=== PATIENT | male | born 1955 | race Caucasian/White ===

== ENCOUNTER 2020-03-20 12:46 | Observation (INO) | payer OTHER ==
--- OUTSIDE RECORDS SUMMARY | 2020-03-20 12:48 | XMS REPORT | Clinical Summary ---
:1955 Author Organization [facility] Address [address] [place] [address] Care Team Providers Name Role Phone AdamsonSteve yancey Primary Care Provider Allergies No Known Allergies Medications Medication Sig Dispensed Refills Start End Date Status Date lisinopril Take 40 mg 0 Active (PRINIVIL,ZESTRIL) 40 MG by mouth tablet daily. hydroCHLOROthiazide Take 25 mg 0 Active (HYDRODIURIL) 25 MG by mouth tablet daily. atorvastatin (LIPITOR) Take 10 mg 0 Active 10 MG tablet by mouth daily. tamsulosin (FLOMAX) 0.4 Take 0.4 mg 0 Active mg Cap 24 hr capsule by mouth daily. finasteride (PROSCAR) 5 Take 5 mg by 0 Active mg tablet mouth daily. aspirin 81 MG EC tablet Take 81 mg 0 Active by mouth daily. docusate sodium (COLACE) Take 1 10 capsule 0 10/19 100 MG capsule capsule (100 0 20 mg total) by mouth 2 (two) times daily for 10 days. acetaminophen-codeine Take 1 15 tablet 0 08/25/19 Discontinued (TYLENOL-CODEINE #3) tablet by 0 20 300-30 mg per tablet mouth every 4 (four) hours as needed for Pain for up to 10 days. Max Daily Amount: 6 tablets ciprofloxacin HCl Take 1 6 tablet 0 08/28/19 Ex pired (CIPRO) 500 MG tablet tablet (500 0 20 mg total) by mouth 2 (two) times daily for 3 days Start taking day before your Urology clinic appointment. traMADol (ULTRAM) 50 mg Take 2 20 tablet 0 tablet tablets (100 0 20 mg total) by mouth every 6 (six) hours as needed for Pain for up to 10 days. Max Daily Amount: 400 mg Active Problems Problem Noted Date Prostate cancer 08/24/2019 Encounters Date Type Specialty Care Team Description 08/24/2019 Anesthesia Event Eduardo Reina MD 08/24/2019 Surgery Carlitos Pugh, ROBOTIC MD LAPAROSCOPY,PRO STATE CTOMY W/ PELVIC LYMPH NODE DISSECTION 08/24/2019 - Hospital Encounter General Internal Carlitos Pugh, 08/26/2019 Medicine 08/03/2019 Hospital Encounter Pre-Admission Carlitos Pugh, Testing MD after 03/20/2019 Social History Tobacco Use Types Packs/Day Years Used Date Former Smoker 1.5 25 Quit: 08/02/19 10 Smokeless Tobacco: Current User Chew Tobacco Cessation: Ready to Quit: No Alcohol Use Drinks/Week oz/Week Comments No Alcohol Habits Answer Date Recorded How often do you have a drink containing alcohol? Never 08/03/2019 How many drinks containing alcohol do you have on a typical Not asked day when you are drinking? How often do you have six or more drinks on one occasion? No t asked Sex Assigned at Date Recorded Not on file Job Start Date Occupation Industry Not on file Not on file Not on file Travel History Travel Start Travel End No recent travel history available. Last Filed Vital Signs Vital Sign Reading Time Taken Blood Pressure 144/68 08/26/2019 11:00 AM UTILIZATION SUPERVISOR Pulse 52 08/26/2019 11:00 AM UTILIZATION SUPERVISOR Temperature 36 C (96.8 F) 08/26/2019 11:00 AM UTILIZATION SUPERVISOR Respiratory Rate 18 08/26/2019 11:00 AM UTILIZATION SUPERVISOR Oxygen Saturation 98% 08/26/2019 11:00 AM UTILIZATION SUPERVISOR Inhaled Oxygen Concentration - - Weight 103.9 kg (229 lb 0.9 oz) 08/24/2019 6:0 0 AM UTILIZATION SUPERVISOR Height 182.9 cm (6') 08/24/2019 6:00 AM UTILIZATION SUPERVISOR Body Mass Index 31.07 08/24/2019 6:00 AM UTILIZATION SUPERVISOR Plan of Treatment Not on file Procedures Procedure Name Priority Date/Time Associated Comments Diagnosis RHYTHM STRIP - SCAN 08/28/2019 10:30 AM UTILIZATION SUPERVISOR HEMOGLOBIN AND Routine 08/26/2019 4:42 Results f or this HEMATOCRIT AM UTILIZATION SUPERVISOR procedure are i n the results section. BASIC METABOLIC Routine 08/26/2019 4:42 Results for this PANEL (7) AM UTILIZATION SUPERVISOR procedure are i n the results section. TRANSFUSION SERVICE 08/25/2019 9:03 REPORT - SCAN PM UTILIZATION SUPERVISOR HEMOGLOBIN AND Routine 08/25/2019 4:58 Results f or this HEMATOCRIT AM UTILIZATION SUPERVISOR procedure are i n the results section. BASIC METABOLIC Routine 08/25/2019 4:58 Results for this PANEL (7) AM UTILIZATION SUPERVISOR procedure are i n the results section. BASIC METABOLIC STAT 08/24/2019 3:58 Results for this PANEL (7) PM UTILIZATION SUPERVISOR procedure are i n the results section. HEMOGLOBIN AND Routine 08/24/2019 3:58 Results f or this HEMATOCRIT PM UTILIZATION SUPERVISOR procedure are i n the results section. TISSUE EXAM AP Routine 08/24/2019 11:00 Results for this AM UTILIZATION SUPERVISOR procedure are i n the results section. PROCEDURE W/ DAVINCI 08/24/2019 8:00 Prostate cancer AM UTILIZATION SUPERVISOR (HCC) Case Notes 4 HRS Special Needs (DAVINIC SI) ROBOTIC LAPAROSCOPY,PROSTATECTOMY W/ 08/24/2019 8:00 AM UTILIZATION SUPERVISOR Prostate cancer PELVIC LYMPH NODE DISSECTION (HCC) Case Notes 4 HRS Special Needs (DAVINIC SI) URINALYSIS W/ REFLEX URINE STAT 08/24/2019 7:39 AM UTILIZATION SUPERVISOR Results for this CULTURE procedure are i n the results section . CBC W/PLT COUNT & AUTO STAT 08/24/2019 7:18 AM UTILIZATION SUPERVISOR Results for this DIFFERENTIAL procedure are i n the results section . ABORH, MANUAL Routine 08/24/2019 7:18 AM UTILIZATION SUPERVISOR Res ults for this procedure are i n the results section . CBC W/PLT COUNT & AUTO STAT 08/24/2019 7:18 AM UTILIZATION SUPERVISOR Results for this DIFFERENTIAL procedure are i n the results section . TRANSFUSION SERVICE REPORT 08/04/2019 6:04 PM UTILIZATION SUPERVISOR - SCAN TYPE AND SCREEN, AUTOMATED Routine 08/03/2019 3:11 PM UTILIZATION SUPERVISOR Results for this procedure are i n the results section . HEMOGLOBIN Routine 08/03/2019 3:11 PM UTILIZATION SUPERVISOR Resu lts for this procedure are i n the results section . PLATELET COUNT Routine 08/03/2019 3:11 PM UTILIZATION SUPERVISOR Re sults for this procedure are i n the results section . BUN AND CREATININE W/RATIO Routine 08/03/2019 3:11 PM UTILIZATION SUPERVISOR Results for this procedure are i n the results section . ELECTROLYTE PANEL Routine 08/03/2019 3:11 PM UTILIZATION SUPERVISOR Results for this procedure are i n the results section . after 03/20/2019 Results RHYTHM STRIP - SCAN (08/28/2019 10:30 AM UTILIZATION SUPERVISOR) Narrative Performed At This result has an attachment that is no t available. Hemoglobin and hematocrit (08/26/2019 4:42 AM UTILIZATION SUPERVISOR)Only the most recent of3 resultswithin the time period is included. Hemoglobin 11.2 (L) 13.7 - 17.5 GM/DL [facility] Hematocrit 32.5 (L) 40.1 - 51.0 % [facility] Specimen Blood Narrative Performed At Third Rigger ID - [id number] [facility] Performing Organization Address City/State/Zipcode Phone Number [facility] [address] [place] [address] CENTER Basic metabolic panel (08/26/2019 4:42 AM UTILIZATION SUPERVISOR)Only the most recent of3 results within the time period is included. Sodium 136 136 - 145 meq/L [facility] Potassium 3.4 (L)Comment: Specimen 3.5 - 5.1 meq/L [facility] slightly hemolyzed [facility] Chloride 105 98 - 107 meq/L [facility] CO2 26 22 - 29 meq/L [facility] BUN 10 7 - 21 mg/dL [facility] Creatinine 0.87Comment: Specimen 0.57 - 1.25 mg/dL [facility] slightly hemolyzed [facility] Glucose 89 70 - 105 mg/dL [facility] Calcium 8.0 (L) 8.4 - 10.2 mg/dL [facility] EGFR 89Comment: ESTIMATED GFR IS mL/min/1.73 sq m [facility] NOT ACCURATE CREATININE [facility] CLEARANCE IN PREDICTING GLOMERULAR FILTRATION RATE. ESTIMATED GFR IS NOT APPLICABLE FOR DIALYSIS PATIENTS. Specimen Blood Narrative Performed At Third Rigger ID - DANGELO Jabari [facility] Performing Organization Address City/State/Zipcode Phone Number [facility] [address] [place], [place] [id number] CENTER TRANSFUSION SERVICE REPORT - SCAN (08/25/2019 9:03 PM UTILIZATION SUPERVISOR)Only the most recent of2 resultswithin the time period is included. Narrative Performed At This result has an attachment that is no t available. Tissue Exam (08/24/2019 11:00 AM UTILIZATION SUPERVISOR) Case Report Surgical Pathology Report Case: [id number] [facility] Authorizing Provider:Carlitos Borja MDCollected: 08/24/2019 1100 [facility] Ordering Location: [facility] Received:08/24/2019 1620 SERVICES Pathologist: Zack Downey MD Specimens: A) - Lymph No de, Crystal-prostatic Lymph Nodes B) - Lymph Node, Left Pelvic Lymph Nodes C) - Lymph Node, Right Pelvic Lymph Nodes D) - Prostate, prostate and seminal vessicles DIAGNOSIS A. LYMPH NODE, PERIPROSTATIC, BIOPSY: [facility] - METASTATIC ADENOCARCINOMA IN ONE OF ONE LY MPH NODE (08/02) [facility] B. LYMPH NODES, LEFT PELVIC, DISSECTION: - METASTATIC ADENOCARCINOMA IN ONE OF TWELVE LYMPH NODES (08/13) C. LYMPH NODES, RIGHT PELVIC, DISSECTION: - SEVEN BENIGN LYMPH NODES (0/7) D. PROSTATE, ROBOTIC ASSISTED LAPAROSCOPIC RADIC AL PROSTATECTOMY: - ADENOCARCINOMA, DANIELLA 5+4=9, ESTABLISHED EXTRAPROSTATIC EXTENSION, SURGICAL MARGINS POSITIVE SEMINAL VESICLES, ROBOTIC ASSISTED LAPAROSCO PIC RADICAL PROSTATECTOMY: - INVOLVEMENT BY ADENOCARCINOMA OF PROST ATE (BILATERAL) Signing Pathologist Direct Phone Line: [phone] COMMENT Sections show a dominant rig ht peripheral zone cancer that runs from the apex to the base of the prostate. The tumor also spreads by direct extension to involve most of the left peripheral zone. The [facility] umor shows a positive surgic al margin in the right apical shave and in the region of the right neurovascular bundle in the apical third of the gland, the latter associated with extraprostatic extension [facility] at the positive margin. The re is extensive involvement of both seminal vesicles and the adjacent soft tissue. There is intraductal carcinoma and large volume perineural space invasion, both of which a re adverse prognostic indica tors. A focus of lymph vascular invasion is seen adjacent to the right seminal vesicle. SYNOPTIC REPORT PROSTATE GLAND: Radical Pros tatectomy(Prostate - All Specimens) [facility] 8th Edition - Protocol posted: 09/28/2018 : SPECIMEN Procedure:Radical prostatectomy Prostate Size: Prostate Weight (g):85 g Prostate Greatest Dimension (Centimeter s):5.3 cm Additional Dimension (Centimeters): 4.5 cm Additional Dimension (Centimeters): 3.9 cm TUMOR Histologic Type:Acinar adenocarcino ma Histologic Grade: Grade Group and Gle ason Score:Grade group 5 (Daniella Score 5 + 4 = 9) : Percentage of Pattern 4:30 % Percentage of Pattern 5:60 % Intraductal Carcinoma (IDC):Present Tumor Quantitation:25 % Extraprostatic Extension (EPE):Present, nonfocal Location of Extraprostatic Extension: Right lateral Location of Extraprosta tic Extension:Right posterolateral (neurovascular bundle) Location of Extraprosta tic Extension:soft tissue adjacent ot seminal vesicles Urinary Bladder Neck Invasion:Not ident ified Seminal Vesicle Invasion:Present :Bilateral Treatment Effect:No known presurgical t herapy Lymphovascular Invasion:Present Perineural Invasion:Present: large volu me MARGINS Margins:Involved by invasive carcinoma :Non-limited (>= 3 mm) Linear Length of Positive Margin(s) (Millim eters):10 mm Focality:Unifocal Location of Positive Margin(s):Righ t apical Location of Positive Ma rgin(s):Right postero-lateral (neurovascular bundle) Margin Positivity in Ar ea of Extraprostatic Extension (EPE):Present Location(s):riht neurovascular bundle Daniella Pattern at Positive Margin(s): Pattern 5 LYMPH NODES Number of Lymph Nodes Involved:2 Site(s):Pelvic NOS: Left Site(s):Periprostatic Size of Largest Lymph Node Involved (Centimeter s):0.4 cm Extranodal Extension:Present Number of Lymph Nodes Examined:20 PATHOLOGIC STAGE CLASSIFICATION (pTNM, AJCC 8th Edition) Primary Tumor (pT):pT3b Regional Lymph Nodes (pN):pN1 ADDITIONAL FINDINGS Additional Findings: High-grade prostatic intraepithelial neoplasia (PIN) Additional Findings:Inflammation (type) : chronic Additional Findings:Nodular prostatic h yperplasia CPT Code(s) A. 85000 [facility] HE ALTH B. [address] [facility] C. 83366 D. 69156 CLINICAL HISTORY Prostate cancer [facility] SPECIMEN SOURCE A. Periprostatic lymph [facility] nodes. B. Left pelvic lymph [facility] nodes. C. Right pelvic lymph nodes. D. Prostate and seminal vesicles GROSS DESCRIPTION The case is received fresh i n four parts, each labeled with the patient's name and accession number. [facility] Part A. Labeled "periprostat ic lymph nodes" is a 0.4 x 0.4 x 0.2 cm pink lymph node with attached soft tissue. The lymph node is submitted in A1, and the remainder of the specimen is in A2-A3. Part B. Labeled "left pelvic lymph nodes" is a 4 x 3 x 1.3 cm aggregate of two irregular portions of yellow adipose tissue. The specimen is serially sectioned to reveal multiple pink mostly fat-replaced lymph nodes ranging 0.4-2 cm. The specimen is e ntirely submitted. Section code: B1-B3, one lymph node bisected in each cassette B4, one possible intact lymph node B5, two possible intact lymph nodes B6, one possible intact lymph node B7, remainder of specimen Part C. Labeled "right pelvi c lymph nodes" is a 4 x 3 x 1 cm irregular portion of zelaya-yellow adipose tissue. The specimen is serially sectioned to reveal three possible pink partially fat-replaced lymph nodes ranging 0.4-4.7 cm. The specimen is entir eva submitted. Section code: C1, one lymph node bisected C2, one intact lymph node C3-C6, largest lymph node, serially sectioned C7-C8, remainder of specimen Part D. Labeled "prostate" i s an 85 gm radical prostatectomy (weight devoid of adnexa) with attached bilateral seminal vesicles and vas deferentia. The prostate measures 4.5 cm apex to base, 5.3 cm transversely and 3.9 cm anterior to posterior. The right and left seminal vesicles measure 2.7 x 1.5 x 0.8 cm and 2.9 x 1.1 x 0.6 cm respectively. The r ight and left vas deferens m easure 4.3 cm and 3 cm in length respectively, each 0.5 cm in diameter. The capsular surface of the prostate is purple-zelaya to red, dusky and focally ragged. Ink code: Blue-left Black-right The prostate is serially sec tioned from apex to base in its entirety. The total number of slices is 8. Sections reveals pink-zelaya to stevenson-white, homogeneous, focally nodular prostatic parenchyma throughout. The median lobe slightly bulges through the bladder base. No discrete masses are identified. Sectio jaja of the seminal vesicles reveals a zelaya-pink, unremarkable cut surface. Section code: D1, right vas deferens margin, en face, and righ t seminal vesicle, bisected D2, left vas deferens margin, en face, and left seminal vesicle D3, apex margin, perpendicular sections D4, bladder base margin, perpendicular sections D5-D15, prostate in its entirety submitted seque ntially from apex to base CG/ew MICROSCOPIC DESCRIPTION A-D. Performed. [facility] Gross assessment was [facility] C [facility] performed at [place], Department of [facility] Pathology, [address] [place] [id number], Professional component [facility] was performed at [place], Department of [facility] Pathology, [address] [place] [id number], Specimen Tissue Tissue - Structure of lymph node (body s tructure) Tissue - Structure of lymph node (body s tructure) Tissue - Prostatic structure (body struc ture) Performing Organization Address City/State/Zipcode Phone Number [address] [address] [place] Urinalysis w/Microscopic + Reflex to Culture (08/24/2019 7:39 AM UTILIZATION SUPERVISOR) Color, UA Yellow [facility] Clarity, UA Clear [facility] Specific [place], UA 1.011 1.001 - 1.035 [facility] pH, UA 8.5 (H) 5.0 - 8.0 [facility] Protein, UA Negative Negative [facility] Glucose, UA Negative Negative [facility] Ketones, UA Negative Negative [facility] Bilirubin, UA Negative Negative [facility] Blood, UA Negative Negative [facility] Nitrite, UA Negative Negative [facility] Leukocytes, UA Negative Negative [facility] Urobilinogen, UA 0.2 0.2 - 1.0 mg/dL [facility] RBC, UA 0 /HPF [facility] WBC, UA 1 /HPF [facility] Squam Epithel, UA 1 /HPF [facility] Specimen Source [facility] Specimen Urine Narrative Performed At Third Rigger ID - [auto] [facility] Third Rigger ID - tech Performing Organization Address City/[facility]/Zipcode Phone Number [address] [address] CENTER toshia KNIGHT (08/24/2019 7:18 AM UTILIZATION SUPERVISOR) ABO Grouping B [facility] Rh Factor NEG [facility] Specimen Blood Performing Organization Address City/[facility]/Zipcode Phone Number [address] [address] CBC with platelet count + automated diff (08/24/2019 7:18 AM UTILIZATION SUPERVISOR) WBC 6.8 3.5 - 10.5 K/L [facility] RBC 4.02 (L) 4.63 - 6.08 M/L [facility] Hemoglobin 13.3 (L) 13.7 - 17.5 GM/DL [facility] Hematocrit 38.0 (L) 40.1 - 51.0 % [facility] MCV 94.5 (H) 79.0 - 92.2 fL [facility] MCH 33.1 (H) 25.7 - 32.2 pg [facility] MCHC 35.0 32.3 - 36.5 GM/DL [facility] RDW 13.1 11.6 - 14.4 % [facility] Platelets 190 150 - 450 K/CU MM [facility] MPV 11.0 9.4 - 12.4 fL [facility] nRBC 0 0 - 0 /100 WBC [facility] % Neutros 71 % [facility] % Lymphs 21 % [facility] % Monos 6 % [facility] % Eos 1 % [facility] % Baso 0 % [facility] # Neutros 4.78 1.78 - 5.38 K/L [facility] # Lymphs 1.43 1.32 - 3.57 K/L [facility] # Monos 0.43 0.30 - 0.82 K/L [facility] # Eos 0.07 0.04 - 0.54 K/L [facility] # Baso 0.03 0.01 - 0.08 K/L [facility] Immature Granulocytes-Relative 0 0 - 1 % C HI [facility] Specimen Blood Performing Organization Address City/State/Zipcode Phone Number [facility] [address] [place] [address] CENTER Type and screen, automated (08/03/2019 3:11 PM UTILIZATION SUPERVISOR) ABO/RH AUTOMATED (BEAKER) B NEGATIVE [facility] Ab Scrn NEGATIVE [facility] Specimen Blood Performing Organization Address City/[facility] Phone Number [address] [address] BUN and Creatinine (08/03/2019 3:11 PM UTILIZATION SUPERVISOR) BUN 11 7 - 21 mg/dL [facility] Creatinine 1.05 0.57 - 1.25 mg/dL [facility] EGFR 72Comment: ESTIMATED GFR IS mL/min/1.73 sq m [facility] NOT ACCURATE CREATININE [facility] CLEARANCE IN PREDICTING GLOMERULAR FILTRATION RATE. ESTIMATED GFR IS NOT APPLICABLE FOR DIALYSIS PATIENTS. Specimen Blood Performing Organization Address [facility] Phone Number [address] [address] CENTER Platelet count (08/03/2019 3:11 PM UTILIZATION SUPERVISOR) Platelets 225 150 - 450 K/CU MM [facility] Specimen Blood Performing Organization Address [facility] Phone Number [address] [address] CENTER Hemoglobin (08/03/2019 3:11 PM UTILIZATION SUPERVISOR) Hemoglobin 13.8 13.7 - 17.5 GM/DL [facility] Specimen Blood Performing Organization Address City/[facility] Phone Number [address] [address] CENTER Electrolytes (08/03/2019 3:11 PM UTILIZATION SUPERVISOR) Sodium 139 136 - 145 meq/L [facility] Potassium 3.6 3.5 - 5.1 meq/L [facility] Chloride 102 98 - 107 meq/L [facility] CO2 26 22 - 29 meq/L [facility] Specimen Blood Performing Organization Address City/State/Zipcode Phone Number [facility] [address] [place] [address] CENTER after 03/20/2019 Insurance Payer Benefit Plan / Group Subscriber ID Type Phone A [facility] CHOICE xxxxxxxxxxxx HMO/POS [phone] CHOICE EXCHANGE Advance Directives For more information, please contact:[facility] [place] [address] [phone] Code Status Date Activated Date Inactivated Comments Full Code 08/24/2019 6:30 PM 08/26/2019 6:22 PM This code status was determined by: Patient
--- OUTSIDE RECORDS SUMMARY | 2020-03-20 12:49 | XMS REPORT ---
:1955 Author Organization [employer] Care Team Providers Name Role Phone Juan Diego Suhas Provider Role Unavailable Allergies, Adverse Reactions, Alerts Substance Reaction Event Type N.K.D.A. Info Not Available Non Drug Allergy Problems Problem Type Condition Code Onset Dates Condition Statu s Problem Eczema, unspecified type L30.9 Act zacarias Problem Elevated prostate specific antigen R97.20 Active (PSA) Problem Former smoker Z87.891 Active Problem Prostate cancer C61 Active Problem History of malignant neoplasm of Z85.46 Active prostate Problem Acute right-sided low back pain M54.41 Active with right-sided sciatica Problem Benign prostatic hyperplasia with N40.1 Active lower urinary tract symptoms Problem BPH without urinary obstruction N40.0 Active Problem Adult BMI 31.0-31.9 kg/sq m Z68.31 Active Problem BPH loc w urin obs/LUTS N40.1 Acti ve Problem History of skin cancer Z85.828 Activ e Assessment Muscle spasm M62.838 Active Problem Benign essential hypertension I10 Active Assessment Acute right-sided low back pain M54.41 Active with right-sided sciatica Problem Mixed hyperlipidemia E78.2 Active Medications Medication Code Code Instructions Start End Status Dosage System Date Date Aspirin Adult Low Dose [facility] 44734836249 81 MG Orally Active 1 tablet Once a day Lisinopril [facility] 39376606988 40 MG Orally Active 1 ta blet Once a day Lipitor ND 37143085934 10 MG Orally Active 1 table t Once a day Lisinopril ND 77563095247 40 MG Orally Active 1 ta blet Once a day Hydrochlorothiazide ND 44061274684 25 MG Orally Act zacarias 1 tablet Once a day in the morning Cyclobenzaprine HCl ND 46653136918 10 MG Orally December 26December Act zacarias 1 tablet Once a day 2019, at 2019 bedtime as needed Results No Known Results Summary Purpose eClinicalWorks Submission
--- OUTSIDE RECORDS SUMMARY | 2020-03-20 12:49 | XMS REPORT | Continuity of Care Document ---
:1955 Author Organization [facility] t Address [address] [place] [address] [place] [id number] Care Team Providers Name Role Phone Steve Adamson DO Primary Care Physician Leidy Roberts Attending Clinician Unavailable Leidy Roberts Attending Clinician Unavailable Lexy HUANG Attending Clinician LEXY Attending Clinician Unavailable Lexy HUANG Attending Clinician Nuno HUANG Attending Clinician LEXY Admitting Clinician Unavailable Payers Payer Name Policy Type Policy Number Effective Date Expiration Date [facility] xxxxxxxxxxxx [facility] Luke s - CHOICE Medical EXCHANGExxxxxxxxxxxx Cent er [id number]/[phone] Problems Condition Condition Condition Status Onset Resolution Last Treating Co mments Source Name Details Category Date Date Treatment Clinician Date Prostate Prostate Disease [facility] - [facility]: Medical [address] [place] [address] Benign Benign Diagnosis Active [facility] essential essential Luke s - hypertensi hypertensi Me moria on on l Outpati ent Clinics Elevated Elevated Problem Active [facility] prostate prostate [facility] - specific specific Memori a antigen antigen l (PSA) (PSA) Outpati ent Clinics BPH BPH Problem Active [facility] without without [facility] - urinary urinary Memoria obstructio obstructio l n n Outpati ent Clinics Eczema, Eczema, Diagnosis Active [facility] unspecifie unspecifie Lucille kes - d type d type Memoria l Outpati ent Clinics Mixed Mixed Problem Active [facility] hyperlipid hyperlipid Lucille kes - emia emia [facility] Former Former Problem Active [facility] smoker smoker [facility] History of History of Problem Active [facility] skin skin [facility] - cancer cancer [facility] BPH loc w BPH loc w Problem Active [facility] urin urin [facility] - obs/LUTS obs/LUTS Memori a l [facility] Adult BMI Adult BMI Diagnosis Active [facility] 31.0-31.9 31.0-31.9 Luke s - kg/sq m kg/sq m [facility] l [facility] Prostate Prostate Problem Active [facility] - [facility] History of History of Diagnosis Active [facility] malignant malignant Luke s - neoplasm neoplasm Memori a of of l prostate prostate Outpat i ent Clinics Acute Acute Problem Active [facility] right-side right-side Lucille kes - d low back d low back Me moria pain with pain with l right-side right-side Ou tpati d sciatica d sciatica en t Clinics Open wound Open wound Diagnosis Active [facility] of finger, of finger, Lucille kes - initial initial [facility] encounter encounter l [facility] S/P S/P Diagnosis Active [facility] prostatect prostatect Lucille kes - radhames radhames [facility] Allergies, Adverse Reactions, Alerts This patient has no known allergies or adverse reactions. Social History Social Habit Start Date Stop Date Quantity Comments Source History of tobacco Chews Tobacco [facility] - use Medical Center History [facility] - Alcohol Std [facility]inks [facility] History SDGA [facility] - Alcohol Binge Medical [place] ter Sex Assigned At [facility] St Lucille lopez - [facility] Cigarettes smoked 2019-08-25 2019-08-[address] [facility] [address] [facility] - current (pack per 00:00:00 00:00:00 Medical Center day) - Reported Cigarette 2019-08-25 2019-08-[address] [facility] [address] Jigar - pack-years 00:00:00 00:00:00 Medical Center History SDOH 2019-08-03 2019-08-[address] [facility] - Alcohol Frequency 00:00:00 00:00:00 Medical Center Smoking Status Start Date Stop Date Source Former smoker 2019-08-25 00:00:2019-08-25 00:00:[address] [facility] Medications Ordered Filled Start Stop Current Ordering Indication Dosage Frequency Signature Comments Components Source Medication Medication Date Date Medication? Clinician (SIG) Name Name jsoef 2019- No 100mg Q.5D Take 1 [facility] sodium 08-25 capsule [facility] - (COLACE) 00:00: 23:59 (100 mg Medic al 100 MG 00 :00 total) by Center capsule mouth 2 (two) times daily for 10 days. traMADol 2019- No 100mg Take 2 [facility] (ULTRAM) 50 08-25 tablets Luke s - mg tablet 00:00: 23:59 (100 mg Medi devorah 00 :00 total) by Center mouth every 6 (six) hours as needed for Pain for up to 10 days. Max Daily Amount: 400 mg ciprofloxac 2019- No 500mg Q.5D Take [address] in HCl 08-25 tablet [facility] - (CIPRO) 500 00:00: 23:59 (500 mg Me dical MG tablet 00 :00 total) by Cente r mouth 2 (two) times daily for 3 days Start taking day before [facility] acetaminoph 2019- No 1{tbl} Take [address] en-codeine 08-25 tablet by Renetta es - (TYLENOL-CO 00:00: 00:00 mouth Medi devorah DEINE #3) 00 :00 every 4 Center 300-30 mg (four) per tablet hours as needed for Pain for up to 10 days. Max Daily Amount: 6 tablets aspirin 81 2019- Yes 81mg QD Take [address] MG EC 02 by mouth [facility] - tablet 15:16: daily. Medical [address] [place] lisinopril Yes 40mg QD Take [address] (PRINIVIL,Z -02 by mouth Luke s - ESTRIL) 40 14:33: daily. Medic al MG tablet 21 Center hydroCHLORO Yes 25mg QD Take [address] thiazide -02 by mouth [facility] - (HYDRODIURI 14:33: daily. Medi devorah L) 25 MG 21 Center tablet atorvastati Yes 10mg QD Take [address] n (LIPITOR) 1-02 by mouth Luke s - 10 MG 14:33: daily. Medical tablet [address] [place] tamsulosin 2020-0 Yes .4mg QD Take 0.[address] [facility] (FLOMAX) 1-02 mg by [facility]ukes - 0.4 mg Cap 14:33: mouth Medica l 24 hr 21 daily. Center capsule finasteride 2020-0 Yes 5mg QD Take [address] (PROSCAR) 5 1-02 by mouth Luke s - mg tablet 14:33: daily. Medica l [address] [place] Hydrochloro Hydrochloro Yes Suhas [address] thiazide thiazide [place] in the Luke s - morning [facility] ent Clinics Lisinopril Lisinopril Yes Suhas [address] [facility] ent [facility] Aspirin Aspirin Yes Suhas [address] Adult Low Adult Low Adamson Luke s - Dose Dose [facility] ent [facility] Lipitor Lipitor Yes Suhas [address] [facility] ent Clinics Cyclobenzap Cyclobenzap Yes Suhas TAKE ONE [facility] rine HCl rine HCl Adamson TABLET BY L ukes - MOUTH AT [facility] BEDTIME l NEEDED [facility] ent Clinics Immunizations Ordered Filled Immunization Date Status Comments [facility] Immunization Name Name Flucelvax - Flucelvax - 2019-05-11 Completed [facility] - multidose vial multidose vial 00:00:00 [facility] Outpatient Clin[facility] Vital Signs Vital Name Observation Time Observation Value Comments Source Systolic blood 2019-08-26 11:00:00 144 mm[Hg] [facility] Diastolic blood 2019-08-26 11:00:00 68 mm[Hg] [facility] S [facility] Heart rate 2019-08-26 11:00:00 52 /min [facility] Body temperature 2019-08-26 11:00:00 36 Daija [facility] Respiratory rate 2019-08-26 11:00:00 18 /min [facility] Oxygen saturation in 2019-08-26 11:00:00 98 /min [facility] - Arterial blood by Medical Ce nter Pulse oximetry Body height 2019-08-24 06:00:00 182.9 cm [facility] Body weight Measured 2019-08-24 06:00:00 103.9 kg [facility] BMI 2019-08-24 06:00:00 31.07 kg/m2 [facility] Procedures Procedure Date / Time Performed Performing Clinician [facility] RHYTHM STRIP - SCAN 2019-08-28 10:30:37 Provider, [facility] BASIC METABOLIC PANEL 2019-08-26 04:42:00 Landen Zhang [place] [id number]) [facility] HEMOGLOBIN AND 2019-08-26 04:42:00 Leatha, Landenalysha Harper [facility] TRANSFUSION SERVICE 2019-08-25 21:03:45 Provider, [facility] REPORT - [facility] BASIC METABOLIC PANEL 2019-08-25 04:58:00 Landen Zhang [place] [id number]) [facility] HEMOGLOBIN AND 2019-08-25 04:58:00 [facility] HEMOGLOBIN AND 2019-08-24 15:58:00 [facility] Landenalysha Harper [facility] BASIC METABOLIC PANEL 2019-08-24 15:58:00 [facility] Ladnenalysha Harper [address] TISSUE EXAM 2019-08-24 11:00:00 [facility] 2019-08-24 08:00[facility]00 [facility] Y W/ PELVIC LYMPH NODE DISSECTION PROCEDURE W/ DAVINCI 2019-08-24 08:00:00 [facility]IN[facility] W/ REFLEX 2019-08-24 07:39:00 [facility] URINE CULTURE [facility] ABORH, MANUAL 2019-08-24 07:18:00 [facility] CBC W/PLT COUNT & AUTO 2019-08-24 07:18:00 Landen Zhang [facility] TRANSFUSION SERVICE 2019-08-04 18:04:04 Provider, [facility] REPORT [facility] ELECTROLYTE PANEL 2019-08-03 15:11:00 [facility] BUN AND CREATININE 2019-08-03 15:11:00 [facility] PLATELET COUNT 2019-08-03 15:11:00 [facility] HEMO[facility]IN 2019-08-03 15:11:00 Bruce Alonso [facility] TYPE AND SCREEN, 2019-08-03 15:11:00 [facility] En[facility] Start End Encounter Admission Attending Care Care Encounter Source Date/Time Date/Time Type Type Clinicians Facility Department ID 2020-02-15 2020-02-15 Unknown 3 Ayad Roberts [facility] [id number] 08:31:00 08:31:00 Roberts Ayad [facility] 2020-02-12 2020-02-12 Office Carlitos Pugh [facility] [id number] 12:31:56 12:46:56 Visit AMBULATOR 350.1.13.21 Y [id number] [id number] 2020-02-05 2020-02-05 [facility] [id number] 09:45:00 09:45:00 [employer] [facility] ent [facility] 2020-01-05 2020-01-05 Office Carlitos Pugh [facility] [id number] 09:29:58 11:03:11 Visit AMBULATOR [id number] Y [id number] 2019-12-27 2019-12-27 [facility] [id number] 13:00:00 13:00:00 [facility] ent [facility] 2019-12-26 2019-12-26 [facility] [id number] 10:58:00 10:58:00 [facility] [employer] [facility] ent [facility] 2019-11-03 2019-11-03 [facility] [id number] 10:39:00 10:39:00 t Specialty/U Lucille kes - Specialty rology Memori a /[facility] 2019-10-26 2019-10-26 [facility] [id number] 10:15:00 10:15:00 [address] [email or web address] s - Drive [facility] 2019-10-11 2019-10-11 [facility] [id number] 16:54:00 16:54:00 t [email or web address] [facility] [facility] ent [facility] 2019-09-08 2019-09-08 Office Carlitos Pugh Jabari [id number] 09:40:29 11:15:26 Visit AMBULATOR 350.1.13.21 Y [id number] 2019-05-26 2019-05-26 Office Carlitos Pugh [facility] [id number] 15:41:53 16:54:02 Visit AMBULATOR 350.1.13.21 Y [id number] 2019-05-22 2019-05-22 [facility] [id number] 14:57:00 14:57:00 t Specialty/U Lucille kes - Specialty rology Memori a /Urology Clinic l Clinic Outpati ent Clinics 2019-05-22 2019-05-22 [facility] [id number] 13:42:00 13:42:00 t Specialty/U Lucille kes - Specialty rology Memori a /Urology Clinic l Clinic Outpati ent Clinics 2019-05-22 2019-05-22 [facility] [id number] 09:30:00 09:30:00 t Specialty/U Lucille kes - Specialty rology Memori a /Urology Clinic l Clinic Outpati ent Clinics 2019-05-17 2019-05-17 [facility] [id number] 09:11:00 09:11:00 t Specialty/U Lucille kes - Specialty rology Memori a /Urology Clinic l Clinic Outpati ent Clinics 2019-05-11 2019-05-11 [facility] [id number] 08:00:00 08:00:00 t [facility] Outpati ent Clinics 2019-05-09 2019-05-09 [facility] [id number] 11:45:00 11:45:00 t Specialty/U Lucille kes - Specialty rology Memori a /Urology Clinic l Clinic Outpati ent Clinics 2019-05-02 2019-05-02 [facility] [id number] 10:54:00 10:54:00 t Specialty/U Lucille kes - Specialty rology Memori a /Urology Clinic l Clinic Outpati ent Clinics 2019-02-13 2019-02-13 [facility] [id number] 08:45:00 08:45:00 t Specialty/U Lucille kes - Specialty rology Memori a /Urology Clinic l Clinic Outpati ent Clinics 2019-01-27 2019-01-27 [facility] [id number] 14:45:00 14:45:00 t Specialty/U Lucille kes - Specialty rology Memori a /Urology Clinic l Clinic Outpati ent Clinics 2018-10-17 2018-10-17 [facility] [id number] 09:00:00 09:00:00 t [facility] Outpati ent Clinics 2018-08-11 2018-08-11 [facility] [id number] 10:00:00 10:00:00 t Specialty/U Lucille kes - Specialty rology Memori a /Urology Clinic l Clinic Outpati ent Clinics 2018-07-18 2018-07-18 [facility] [id number] 08:15:00 08:15:00 t [facility] Outpati ent Clinics 2018-02-08 2018-02-08 [facility] [id number] 14:00:00 14:00:00 t Specialty/U Lucille kes - Specialty rology Memori a /Urology Clinic l Clinic Outpati ent Clinics 2018-02-04 2018-02-04 [facility] [id number] 15:44:00 15:44:00 t Specialty/U Lucille kes - Specialty rology [facility] a /Urology Clinic l [facility] 2018-01-26 2018-01-26 [facility] [id number] 13:15:00 13:15:00 t [facility] 2018-01-24 2018-01-24 [facility] [id number] 13:30:00 13:30:00 t Specialty/U Lucille kes - Specialty rology [facility] a /Urology Clinic [facility] 2018-01-10 2018-01-10 [facility] [id number] 13:30:00 13:30:00 t Specialty/U Lucille kes - Specialty rology [facility] a /Urology Clinic [facility] ent [facility] 2017-10-27 2017-10-27 [facility] [id number] 14:45:00 14:45:00 t Kyp [facility] Results Test Description Test Time Test Comments Results Result Comments Source Tissue Exam 2019-08-31 15:39:00 Test Item Value Reference Range Interpretation Comme nts Case Report (test code = 104) Surgical Pathology Report Case: [id number] Authorizing Provider: Carlitos Pugh MD Collected: 08/24/2019 1100 Ordering Location: [facility] PERIOPER[facility]IVE Received: 08/24/2019 1620 SERVICES Pathologist: Zack Downey MD Specimens: A) - Lymph Node, Crystal-prostatic Lymph Nodes B) - Lymph Node, Left Pelvic Lymph Nodes C) - Lymph Node, Right Pelvic Lymph Nodes D) - Prostate, prostate and seminal vessicles DIAGNOSIS (test code = 3220) t0iyzLKvXGCyu9ctDWQatGIwGeNpXbPaZpKyMm pcd NAqGXdnwwSdZUmba6CnN9OcVbEtOFdllgYoEQQaGz hubzwpDTEkFJP5nsPrMRFtYIjnZDMeXQlkGg2tlCW eqVfgPjSoWNEwq0eeljGVubvcqOu3m5tmFXRqNxC6 vRCjUSblS3vfeiRljJJaIKAjPXb9tQ83PVCykG4nl KSaMHugjpQkKuN3GIdmQOItHtK3DLCgvXNrTYXuM9 fnSIQrGUjbYALePZvkvZIlMSY9oNyjf4D6jOWztOT ldUdjLeBxZnDiFBPUd6WhGPp3tPdxF3IdEALaHtF2 eXNqLVTwSUqeZQCeBKZasgT5iS91HOdszbZ2dYImb 3Eiy31eq622rA8voROmSNX8POViUICsiWLtPOPvKM M7SVStvOYlX7b9EjGyoWJdT8L6TaSkhASrJ7X9TdS lgFJnH6R4PqBbfHIiCGGmgZGjUx9igTOfxGNdqb4d mt35MDM4u3ZewOjgZHR5GNN5XpJzEq3iyDXpCURwV Y4eLzPxhZRvOQOidz76jYycEYjdtuNqmL1uOcNxBY GonCRiYJTyPL8dvXBoOHWdrL4xpexbILTxBhXwogw oHFLrxMzyihQuBb7ioNpmIPI0NDyvT3zquO1mClX7 XNgzP5oknQ4zPOz9YGzoxAI6KJYztN4fQR4dzqfnw 4zfIvFmHG1disvow2qoIwNlUC3hhrc7e4aoWeGfFJ 4wwiqpi9obXkHvAZkpJHWcvkpyAWAxc8JzwjzsXFI hp9QeS6DivGxhN31jvFmjY01wVNPgbDipfK4tpJzj vK2rHbVhNtOuZVupcNpvjMTifojsUMvqjzQwCEvxl fbzHDSlKPpxX2rgTlTeBXHlhBydSMkgd8VyJBSvZZ TvHjWkQF9rVKaXBVhcKc7GHGhkFBORMXITR9JVWQC EPcexViqZJNJSRmocOGHyVOKfNU6wLMDMIXHZBXXH HgYZEXCAN2QPBhZYCl8CFXQXLkOMDyLqJ1EqG33FK YkOIRATJM2ALZQyPAPmJOkjyXYhPTMecsNBSsRKAM 3LVLUVX7CUWqfjGHXHHAOEXZwICDXsBKCQH8JPI4A AF468BSDqrtRqHJUmIKJKFHDKQ9OXYWaQILPGSL9K F1DMW1qYE67DIMjFEA8WBBTJGnRPG9UGSvCvCZuIO UvgJa3MLSIgNFJnITIaLJEazghmPJHlPx4kJLcHGU eoQh3OGLWcJMVGU4kNDEJKZDPWXjaxILvIK2RKQZm TIulkjUYwSMSjQJVdGLFVLyVLEDYJUdzPCmVTKG9F TKISX0WJHjCfKV87MShnDCTnxAUyXGUyJXDSB3XZT ODDLDHVV1XHUMmMCNDNN9qHHIXFLNkHQYERS7SUV4 OYCeGOJSSPG7RSIHRMQ4RWGQFSY1RSRZd5JFBgfzJ bWSDsYWWuME4fFQLCKs4DYVFCER7RUPZgWAcNJGQG O34pSRz8XShdVCVXYDJUUIuNHKRZHXASGIDTYIQUM 4AJZOdTLKZUZCHGN1sDVfdekLOpQFHmXLZaCVPjEI OeNKKWHWBMATHVBXIBZZHOQP8THFZRP6uJIUWCEDZ onvZtLTAmU7FYSV8SOBHZZIXPH4uIFlnxVc5GO9NP VwSPV9KIW6WJAIUSKBBSXl5OW15ZHITiIuWLJCWYG ENQFf4DKRLHVRSDA33QIjfqDPFiYWShVXVuKVPjWO pZLg7QYxFXSL4LUDYIURBSWG1FG8BTO1eLC21AXD5 EUDURR4IMHRSOODkERCvSSVFLTByxJWvgQAY0a0hl dGYxXHNzdGUxODAwMFxhbnNpXGRlZmxhbmcxMDMzX TY6vcAkAOWfTKrrOHGiIXzbEn3fqTJsfSkfXbYzIP Iwi5twriRKqguoaXv1z6bmLOXpXiK1eCPdWVxsH5p dcvZbdHJaYBNpRTv4bW93LKMwhN2maHLcZScfneYs ZoT1OLdgWHLqDnO2DPEarHNtISBsG5ieVUJuHKcgR UHrKByyaYVqQPZ5lKeem9U5kBIsxQBhgNajBhAePh BlRrYCo2JzGSm9mWeuV0ShIKPtLzF9kJNnXZDbHVa lERWlFISopdG0gC49GQgpqzP7uFMtm9Hkx46nv303 xB4wvEZdKYN9LGJaYIIreTCoFBNrTCP6RZBncBXiV 1pjWTNsSM5hlrgcPRhmSEhtFTIzsBN1BOGpeEQsQ4 EfZMRoBWasTGChahw7OfKaQk9xbLYnrHnhXMdma3p vg5vwoSHuCba3ZTGxGlQeNankOOwwj1Omd6ozQNQg zk1jAFV8jQUbxRkuk6J9mRZiDNGdpRJlWRKsHH3ld RKfCVAboV9voxnpPVDhWuLbpdotXMVluOftrhGeKd 9tbLppJBH8JHxxD5ovcQ8eKhK1NFitJ1gbdH0eXIu 8FXodIOUbfBZ0hrD0EJFauJNzT8EevI0jYFXhNY7i cmq6q8twIZN6KUkjUSVlCqO9gwA7AEEmoOBpHDZft ItlFDtzf136PPG9XlMgTLJkn4AvA7ObdPzlB73oaM twP65mGOEagVvsbZ4oeGpxrH6eGkDoZxGbGMueqMh gCN8zKCHhB4nddPCcTCYkRDYpR2ygVuCooW8hjGhb EYyeofLaYHLiZdm3WATjjBIbVGNkRcu3ZKBrREUtE 53xsylaTHC1oU7ep5hao0ZzWUdzEKZ3JRJim78gAS izkdM0GTwdEh9tISDsVaa9ShlmVSB0pL== COMMENT (test code = 3359) a2xogICaZMUfhFGmUkBfRCCrDCAoz9gtHWTpcWOe Z sMpCxWmThRfIesuzYIoUSEgUaIjw3wch343iDHzo5 gkHHMhMjJ1zBLyHNYyfSQaE034JAEiOIgxj9gsl3M jIKUfxWNvu2I3GXLOvuxaxYk6eZynG04uz3V0Lxak X5hiQWHaNPxvBPRaKMptzKVaZDL5NNUbXGL7PKbyt jCzpfQ8FEadtDRwIjY6DUl1h4ioiIyyXOPpOLE9z0 imHQissvEbLQ2vom4ltFt5w8mzmbOpCJEnCTSmjXU MBBAtJ6BetWwbBv7bzFx3vLceTbhqIXR4Ukm4CB4p oo92xwp3yEwbBJMakyeyPvW2ZPzmXLVdyfrsHYd8C FxtYXJnbDcyMFxtYXJncjcyMFxtYXJndDcyMFxtYX [file] gTjgIjshH5bRwRpPoRpEBqvIRD5 SYNOPTIC REPORT (test code = 71) PROSTATE GLAND: Radical Prostatect radhames (Prostate - All Specimens) 8th Edition - Protocol posted: 09/28/2018 : SPECIMEN Procedure: Radical prostatectomy Prostate Size: Prostate Weight (g): 85 g Prostate Greatest Dimension (Centimeters): 5.3 cm Additional Dimension (Centimeters): 4.5 cm Additional Dimension (Centimeters): 3.9 cm TUMOR Histologic Type: Acinar adenocarcinoma Histologic Grade: Grade Group and Daniella Score: Grade group 5 ([place] Score 5 + 4 = 9) : Percentage of Pattern 4: 30 % Percentage of Pattern 5: 60 % Intraductal Carcinoma (IDC): Present Tumor Quantitation: 25 % Extraprostatic Extension (EPE): Present, nonfocal Location of Extraprostatic Extension: Right lateral Location of Extraprostatic Extension: Right posterolateral (neurovascular bundle) Location of Extraprostatic Extension: soft tissue adjacent ot seminal vesicles Urinary Bladder Neck Invasion: Not identified Seminal Vesicle Invasion: Present : Bilateral Treatment Effect: No known presurgical therapy Lymphovascular Invasion: Present Perineural Invasion: Present: large volume MARGINS Margins: Involved by invasive carcinoma : Non-limited (>= 3 mm) Linear Length of Positive Margin(s) (Millimeters): 10 mm Focality: Unifocal Location of Positive Margin(s): Right apical Location of Positive Margin(s): Right postero-lateral (neurovascular bundle) Margin Positivity in Area of Extraprostatic Extension (EPE): Present Location(s): riht neurovascular bundle Daniella Pattern at Positive Margin(s): Pattern 5 LYMPH NODES Number of Lymph Nodes Involved: 2 Site(s): Pelvic NOS: Left Site(s): Periprostatic Size of Largest Lymph Node Involved (Centimeters): 0.4 cm Extranodal Extension: Present Number of Lymph Nodes Examined: 20 PATHOLOGIC STAGE CLASSIFICATION (pTNM, AJCC 8th Edition) Primary Tumor (pT): pT3b Regional Lymph Nodes (pN): pN1 ADDITIONAL FINDINGS Additional Findings: High-grade prostatic intraepithelial neoplasia (PIN) Additional Findings: Inflammation (type): chronic Additional Findings: Nodular prostatic hyperplasia CPT Code(s) (test code = 3357) t4dtyPDhKCHbvBDgNnGtOVPmQBHrs2nfFQKo bGFuZ nKzEhCeLyFrScbshZEzFBCnTpMrv1ips834cBHxy5 ynQOPhTfH1cJSjOZKneQVoA952o0anb1uxjhVcgEM 6MZDlVVA6LDffqdHjdtD7GQpysBOpToU2MGfvevGq GYpexfKggfBbAzi0QIUjZ199ANO3cZokf4kaMWJ3M YLaXDMqSfYkNy0mdARyI456JOExNLPQUVIczIm0MA YpxyJmktSggPXHi965R170n6exVLPsiyRdoQbCsib xn1fxX259NGZqgDRvhkJyUoJlKOBuiEBsfYD9RYOc AA2xslbvJpNgXB3yhvjwLqKuRL9ryxg1ZoFwNR7sb uroItOhVWhsWSPlzjrbYGTwp3SlrqzrKR2tY7Sjd5 X3pU0wiZKdGWIcfIOxUhLbFQOmry0sxAUuFPpll5S tSSW2aiW9tFOlqPIlJNWzSI30Yjtrk6NgBokcJGA1 KFBfexUon7Vfx7vbFqYeezHbT8itB8SiFUIvPGCuZ AUsOoScccNtd0Xts9BqiJQsaSj9a0dsYMBoIUTgrH ojb5hjPTH1KHCvF3A2zULcw6jtDLfwGOZitWT6ica yMAkkMKUzmrZ2iolxLVdkJMJufLH8jxrnYQlrHNNz AhM4tjttOFtgKAYcIHX9BYegu012WLA8WNnaHuykX WdlXHBnbmNvbnRccGduZGVjXHBsYWluXHBsYWluXG LlJSGmJvVnmEeviTvekE3cNaOxXbYbHXcuDC9mRJZ hC8sefGXuMOWtWDMfP9rsLpYyjL2fmOesJUfunnTb JKAlFKc5CrL0GYMguxCJPkX6JAKxI8rsEFJrZp6wR SqkEQfshYTdVJBhNTu4AbB5VJHvgu0= CLINICAL HISTORY (test code = 3356) z2asfSVjDDRryYAlYvSmXTVsUNVkj9x cZGVmbGFuZ rZpXsWoElTrYknfxBEyLFLsNeClk3cbp564jBAjw3 rnHXQkUxV7yFPaUQHyqFVnH824t1chp7icgrTvlTZ 7ILAqNYL1THplzkGlbyZ9YYnlbJYwVmH0DRydjxQe FXofybEwzzDhLop9CTHfC208PRP9sDytr8sqDIN5X KVdOYIfRcPnXl6suGEtA741PWJqAFJKLJSwsNr9RV NkxfHphgHmrZFRi712O447l8puDVLsvxUjnEkGabc qp1ygX012JSDewHMksbZgDcOsUBMweTLrtLY8CQEe AH1rszcaUgIeGY7wklzzWaNkQJ3ugio1NkCmED0xl vfkDsLaVUywVXSqamntPGByt2InpaemDZ3zB1Xtj9 A3fZ3gtVOcFPCyyKKqHpAcNSBtkd9eqXGlRQqgq1E mCAD5lmU6fXQegUVqGWEuFI20Oguzx4DjVfcdKFJ0 YZFnsaHfj7Gbp4rxWrYvbbTqZ9nmJ0CxWPEcWJVrP BMmNgDcolQpv8Bpi0HdmDBneQl1i9paRDBbPHFbkR qic1nnLWQ0IBVcS6A3sPXig5qxTPmqRZNcjXK6yqh gHDjeJPLsnfO7jeedTTldRRNzvKA4yjpvUShgENGt VhF7upxxOGnpNEKiNAV3EMwdz159VSQ4AZxaMfrlH WdlXHBnbmNvbnRccGduZGVjXHBsYWluXHBsYWluXG LyAMIhXhLliMzyrGgaqR5tDkPhDaCwCDlzST5gHIU jA3edfZWaDIDqWZVsJ4ugTpQytG3sjGxpUGmfwbDy PAFpn8P5KJKpXRMbtiZpukvdGAT7 SPECIMEN SOURCE (test code = 3377) q4hirRWfDIAuwBPfHgInZMFwQPJxy6bw ZGVmbGFuZ oIlTvUqCmClRqhhbAAjFZXrEyCxi5aqg174gVVla0 ghBRDoYdC2eAPgRSTmrXNsD504p8rcv4yvweQikYH 8OGFuHXT2LKhtgoTsanL9YUjypMTiJcP2MCpdmqWk VIsipwNvpjFuKzm8YCUsX900QPC1eUvgn0wbREP3L OWrGXBuGoGjPp5heBUfA233HAYeVWRGCQEziZk0EH SdwvZtyhUnpWGLw536J680c2spLTSrswKkzCbUife il6aeN896VGFnnQTjoiMePrZfPSHtvNBhcRK5NRSq YK8zqdryHnFxRJ1mdsgoTaGnGU1qcen3BqQxRK8ha nunFeXuXBezZGFnseihFEHxo3ZulpdnFT2qO8Oio9 N9vN2iwETtZWZveEZtHzNjAECjrz3dxODeEEbgn9R xYKO2caD4uDFarHJwNRXvAF16Moouu4MkXvwtDQS0 QMElifLwc8Vlk0urZiKkylQrH3ckD5MaXICuOXYfF IBvLcBtbqJmo5Ocd5QsuFDzsZv1j4roSJXdSINcjJ ycg1nwXUS6AJNcE2L0wUNjh9qaVMdqAQQosQV4mbe kIZebJCLwnpU2fpavQPfcTZUfhXT6ibuaXRulUQBl XlZ8twfyXDuhXYPqRHK8UGoxg978JQL8KYshWhigW WdlXHBnbmNvbnRccGduZGVjXHBsYWluXHBsYWluXG YnDOSuNyPsnSljrJshcP7xJqYjAwOoWBpmIQ2gVVT yZ6qssIDqCDXjJGSrX3hjRcZwwI5qsGxlDZvfsqDb TUOnPRKejghhmm8iwPL0nLExxUiqjVffmk7jUXByM PLjWPtlMjCfaWBfiaobXUj2jKHjJR4fXFFfVrEWEa VFcFpjpQSsIYj2dKAddDuozUygkr0mTSSpGGHdUAD kf3D5EJUcMCCgKEMjAB9tkzJpBGJdf0sufDBzTAVa cn0= GROSS DESCRIPTION (test code = 3366) y0dioBSdPXCxoWMhYdThRZEqJAR nk1cjMDKuuMZrE iYfGsReMcOcVomltDOzLYLmKmMbe5ynj865uTMuw2 ukGYIgZzB9fLAdBGNznYWnI719PSIrTYyyo1qjl7N aMKUxrEXlo6B2BUORapmfaVj0bCswN75ji8B5Hycn D6xtTJLxYBQyY1EuBQ1sKWQoJcn9HNU1HUQ4FVPwI PQnQ0VtPY9rHFFxpHPvZLg7d9zazNdjSNTqVMM4n9 nkLXwgqlEsEJ1hpx4zcWy0c3wwgcUiRLPgTDUyzBP AJHUvJ0WuuCchOc2psPq0cCbySegxBHQ1Luu9WM1o kb13vax8oOsiLGUtbfljTyP9FGuiCCBirtqvLUp3F FxtYXJnbDcyMFxtYXJncjcyMFxtYXJndDcyMFxtYX BqIbpzOOqnNYPiHGW2WLegh746GBR5CEsex6ico1q rrORoXin2SGHkFaFoZuziGSslu5Mub7ieCZCiau9g FLT7nKCdlNftj3Q4yMKqGPJxkOXgixUvFAZjHhV3Y NpyMZ2xan03ERLxYUC4ej1efSKraQpczmZbjXDaRQ bjG7SxCTNsv884ZYHkN2AeUBSmf3T9tkHpDsCiSYI tvTL2ruN9CWViFUf7aQQatuU6hiRqpTHsO9dgqN30 FnInxQFgB8TngP38VtYzbJQrM2MmeC42RiDfbCIoG 7QvrJ04KpBkaJGpBVPccAPoBf5feYXtfSPps1AvbL MjFSxzG95oq502CGBqquNsZ1ymiXPtdfzzjXHibjf mUNkcchX2CIPrBUMrGRpyXJIdZOMlEyEybGWzItIx AnWbjLnaeJyoSRduXsBhPVAnMGocL4ayOrLwGrUfV YRFbMAiW9TcHGHlsfIqJFHvtELqAQVqapHdsPQlmn Efb7ZhMVRtjpHwJAIvHFNsJInnUcFaZWVkh2a5fKH 6xBUgjIY9sPYrwDzqSO8xsEQbOW7lOLAzK4Dvl9me udOlyF9sAMThKMPbzuzkAWHpQAAmtPIUKnGTBZRwk UOpLKHdWIHoaUJus6EzwDfeOOg6zYOfMM3yLJMxUi VjjnUsFYVgNPS6UHIgWKV5IIQfCzQakUAqwS4yRWn 1dDSxKS7zPYTex3d6nWBipEJgK1orLPRkp0Y1IWFm g9G6MD7iMYpyNLy4bBKrNN4uBAYfyBZsc3FwcTv6r GVkIGluIEExLCBhbmQgdGhlIHJlbWFpbmRlciBvZi M0jSQay3XeP5nvYZ8qmVAskC3hWNDpCAQlMWMjfff wEGPxqEKnNTwmzYCeilmvJRpgseT4MHHiCFjgFAHm XGZzMjBcbGFuZzEwMzNcaGljaFxmMVxkYmNoXGYxX OkeP0zkGwYkGkEdEKNYJKQ9ZHJcTFtyMyZrSKPvEi hkAuTsxQSoiskhCHv6cSVwWE3pLTNmPzLlenVcARG joMMlHSwpKW6pCMYkYYVyJ7TtA9Q1XOVwRjZ2c01g zINnNDu7hGVvXPNjjnQit56iBB4hBAcypXekdyJpE Fetl9BuUDDys2K3HO3fHFtvYGZmNPQajTHjCUbdXP VihwsvnDo2WVOhR4Exm92nGDO9gqFrHDNeJKbpvFJ uzHonjVTffOanneXch5J3tStrLiU6CCJzqLwfK8Rz TJb6wBPzIU5uPJGeSPRtlplzbsunDY89EDVjL96iR HKoYNItvFXwbQ2hfzKszkZlmsNqxnWdeHHelLWxzA D3LHTlRRNsjciwaGkvcFFnbejiSSwicmJ2SMZoIGs uXGYxXGZzMjBcbGFuZzEwMzNcaGljaFxmMVxkYmNo KTQrKJjbY7oaLvCbOkRrGYevTRQgV4RdvHglshKtl 1HrXgccWGNiJuYnVgLvZO1dCWUpzV7teNPeb5ImYI Bdl9RjaPAtJJnkTTZlV7tdA7Dmb3N5kMUzsNHnMIU 0AVRsrcQmnT9cg9uziSQluA47WFE0XXb4uKAwSW4k PNZvzJSfJJO0USN3n43rdS5xj6imiWKqdC47PMY0W Ai0sKCpRB5iQKIfASenOKGoKjZvMD2iOTLuj2RwoY EjTSWhhdDoX7DdjIvshIsudk0kLCowEQGeNfopARB uvJCeifXxszMeAhIwuLSuwL7qrqshKLVzvYZcCWGd vjJdzNuenM9oSyBdJmYbMCtznDCyryvuODeovcOiL DbxuaixKCDqSPmzV2eiBhUgCCFuuZxgWFruj8KjYS YxXGZzMjAgUGFydCBDLiBMYWJlbGVkICJyaWdodCB [file] = MICROSCOPIC DESCRIPTION (test code = d0fliTNeBHFcsIJcUoNpURVjHZC dw4qsTZMaaGDmM 3371) fEnJbVvGxUiVtdwcUAwWGXxGtJxn2uia607hNBfl7 crFOLtXrG1gHAnGGOqfLSeZ278p5ete0kmnjGluIQ 9NNKkIGY8HAfzdmJuobP3YSzgdRUeThT2CZsuxhCx QQgblwTqxkAkOro5NDEdJ061XUI7aEcqs2znCXD8B VYbIGXzQyYkEo9gfEFlC651SGXsLXMABHQpbOm3PS VycgFodqGdoFIFo814A252k9zyPSPkpwUszYgHujf do3ovA334GJHgnQNyfbOrZlJiVVUsjECubBN5QOMn KS6siubhFcApBQ7ohgckUcQxZJ6tzfq5DbOoXH5to fimMtKcWJroLCPtunruDSPol2AdehrbMG7gR7Ela4 E7jG3swZYpHLWsjEFlIjHxPBKjbi9bcMGgRWyvr5K dNXE5ukI3aZKwhXHhOFBgCJ94Trsjw7ZsGupxIJN5 NIFemzYkl0Izu4fiJnHfmoMtB1vaJ3OvBGYeSBNlI KIgBsKftkOsr0Cez8DnhEPjrQc9b7luXLLhXOBicF gup4lyQQZ2MTVbO2N8fVFmc4apESxmYNFgsDN2dkv nKFwlOSBebpR0pzbhPIcvASOfmTN2ivfaFTyxCRJc ZiV2pyggKTyoJYEyEOS6FXjrz069JBM7QOvyUfuuE WdlXHBnbmNvbnRccGduZGVjXHBsYWluXHBsYWluXG LlITGxNbNhyWdmcRguyO3gAuApBeQhQYrvRI3gBKH yT4kjcEMlMKLkCYSmE6elLaShlG1duXruCLglwnUj RHMpBM9eKTSoHi6upENyQoifQPT8 Gross assessment was performed at [facility], (test code = 2777) Department of Pathology, [address] [place] [address], Professional component was performed [facility] er, at (test code = 2779) Department of Pathology, [address] [place] [address], [facility] HospitalTISS[facility] [id number] 15:39:00Surgical Pathology Report Case: [id number] Authorizing Provider: Carlitos Pugh MD Collected: 08/24/2019 1100 Ordering Location: [facility] PERIOPERATIVE Received: 08/24/2019 1620 SERVICES Pathologist: Zack Downey MD Specimens: A) -Lymph Node, Crystal-prostatic Lymph Nodes B) - Lymph Node, Left Pelvic Lymph Nodes C) - Lymph Node, Right Pelvic Lymph Nodes D) - Prostate, prostate and seminal vessicles A. LYMPH NODE, PERIPROSTATIC,BIOPSY: - METASTATIC ADENOCARCINOMA IN ONE OF ONE LYMPH NODE (08/02)B. LYMPH NODES, LEFT PELVIC, DISSECTION: - METASTATIC ADENOCARCINOMA IN ONE OF TWELVE LYMPH NODES (08/13)C. LYMPH NODES, RIGHT PELVIC, DISSECTION: - SEVEN BENIGN LYMPH NODES (0)D. 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 The tumor also spreads by direct extension to involve most of the left peripheral zone. The tumor shows a positive surgical margin in the right apical shave and in the region of the right neurovascular bundle in the apical third of the gland, the latter associated with extraprostatic extension at the positive margin. There is extensive involvement of both seminal vesicles and the adjacent soft tissue. There is intraductal carcinoma and large volume perineural space invasion, both of which are adverse prognostic indicators. A focus of lymph vascular invasion is seen adjacent to the right seminal vesicle. PROSTATE GLAND: Radical Prostatectomy (Prostate - All Specimens)8th Edition - Protocol posted: 09/28/2018 : SPECIMEN Procedure: Radical prostatectomy Prostate Size:Prostate Weight (g): 85 g Prostate Greatest Dimension (Centimeters): 5.3 cm AdditionalDimension (Centimeters): 4.5 cm Additional Dimension (Centimeters): 3.9 cmTUMOR Histologic Type: Acinar adenocarcinoma Histologic Grade: Grade Group and [place] Score: Grade group 5 (Daniella Score 5 + 4 = 9) : Percentage of Pattern 4: 30 % Percentage of Pattern 5: 60 % Intraductal Carcinoma (IDC): Present Tumor Quantitation: 25 % ExtraprostaticExtension (EPE): Present, nonfocal Location of Extraprostatic Extension: Right lateral Location of Extraprostatic Extension: Right posterolateral (neurovascular bundle) Location of Ext raprostatic Extension: soft tissue adjacent ot seminal vesicles Urinary Bladder Neck Invasion: Not identified Seminal Vesicle Invasion: Present : Bilateral Treatment Effect: No known presurgical therapy Lymphovascular Invasion: Present Perineural Invasion: Present: large volume MARGINS Margins: Involved by invasive carcinoma : Non-limited (>= 3 mm) Linear Length of Positive Margin(s) (Millimeters): 10 mm Focality: Unifocal Location of Positive Margin(s): Right apical Location of Positive Margin(s): Right postero-lateral (neurovascular bundle) Margin Positivity in Area of Extraprostatic Extension (EPE): Present Location(s): riht neurovascular bundle [place] Pattern at Positive Margin(s): Pattern 5 LYMPH NODES Number of Lymph Nodes Involved: 2 Site(s): Pelvic NOS: Left Site(s): Periprostatic Size ofLargest Lymph Node Involved (Centimeters): 0.4 cm Extranodal Extension: Present Number of Lymph Nodes Examined: 20 PATHOLOGIC STAGE CLASSIFICATION (pTNM, AJCC 8th Edition) Primary Tumor (pT): pT3b Regional Lymph Nodes (pN): pN1 ADDITIONAL FINDINGS Additional Findings: High-grade prostatic intraepithelial neoplasia (PIN) Additional Findings: Inflammation (type): chronic Additio nal Findings: Nodular prostatic hyperplasia A. 42440M. 16550M. 37003W. 26611Sbearpmc cancerA. Periprostatic lymph nodes. B. Left pelvic lymph nodes. C. Right pelvic lymph nodes. D. Prostate and seminal vesiclesThe case is received fresh in four parts, each labeled with the patient's name and accession number.Part A. Labeled "periprostatic lymph nodes" is a 0.4 x 0.4 x 0.2 cm pink lymph node with attached soft tissue. The lymph node is submitted in A1, and the remainder of the specimen is in A2-A3.Part B. Labeled "left pelvic lymph nodes" is a 4 x 3 x 1.3 cm aggregate of two irregular portions ofyellow adipose tissue. The specimen is serially sectioned to reveal multiple pink mostly fat-replaced lymph nodes ranging 0.4-2 cm. The specimen is entirely submitted.Section code:B1-B3, one lymph nodebisected in each cassetteB4, one possible intact lymph nodeB5, two possible intact lymph nodes B6, one possible intact lymph nodeB7, remainder of specimenPart C. Labeled "right pelvic lymph nodes" is a4 x 3 x 1 cm irregular portion of zelaya-yellow adipose tissue. The specimen is serially sectioned to reveal three possible pink partially fat- replaced lymph nodes ranging 0.4-4.7 cm. The specimen is entirely submitted.Section code:C1, one lymph node bisectedC2, one intact lymph nodeC3- C6, largest lymph node, serially sectioned C7-C8, remainder of specimenPart D. Labeled "prostate" is an 85 gm radical prostatectomy (weight devoid of adnexa) with attached bilateral seminal vesicles and vas deferentia. The prostate measures 4.5 cm apex to base, 5.3 cm transversely and 3.9 cm anterior to posterior. The right and left seminal vesicles measure 2.7 x 1.5 x 0.8 cm and 2.9 x 1.1 x 0.6 cm respectively. The right and left vas deferens measure 4.3 cm and 3 cm in length respectively, each 0.5 cm in diameter.Thecapsular surface of the prostate is purple-zelaya to red, dusky and focally ragged.Ink code:Wcvt-qmpcNiuod-gqxyp The prostate is serially sectioned from apex to base in its entirety. The total number of slices is 8.Sections reveals pink-zelaya to stevenson-white, homogeneous, focally nodular prostatic parenchymathroughout. The median lobe slightly bulges through the bladder base. No discrete masses are identified. Sectioning of the seminal vesicles reveals a zelaya-pink, unremarkable cut surface.Section code:D1,right vas deferens margin, en face, and right seminal vesicle, bisected D2, left vas deferens margin, en face, and left seminal vesicleD3, apex margin, perpendicular sectionsD4, bladder base margin, perpendicular sections D5-D15, prostate in its entirety submitted sequentially from apex to baseCG/Darlin-D. Performed.[facility], Department of Pathology, [address] [place] [address], [facility], Department of Pathology, [address] [place] [address], Ipiwo metabolic panel 2019-08-26 06:34:00 Test Item Value Reference Range Interpretation Comments Sodium (test code = 136 meq/L 871-120 4986-2) Potassium (test code = 3.4 meq/L 3.5-5.1 L Speci men slightly 2823-3) hemolyzed Chloride (test code = 105 meq/L 98-107 2075-0) CO2 (test code = 26 meq/L 22-29 8-9) BUN (test code = 10 mg/dL 7-21 3094-0) Creatinine (test code 0.87 mg/dL 0.57-1.25 Specim en slightly = 2160-0) hemolyzed Glucose (test code = 89 mg/dL 70-105 2345-7) Calcium (test code = 8.0 mg/dL 8.4-10.2 L 39199-8) EGFR (test code = 89 mL/min/1.73 [place] [address]-6) NOT ACCURATE CREATININE CLEARANCE IN PREDICTING GLOMERULAR FILTRATION RATE . ESTIMATED GFR I S NOT APPLICABLE FOR DIALYSIS PATIENTS. BERNICE (test code = BERNICE) Treasurer ID - DANGELO M Lab Interpretation Abnormal (test code = 03412-7) [facility]BAS[facility]OLIC [id number] 06:34:00 Test Item Value Reference Range Interpretation Comments SODIUM (BEAKER) 136 meq/L 136-145 (test code = 381) POTASSIUM (BEAKER) 3.4 meq/L 3.5-5.1 L Specimen slightly (test code = 379) hemolyzed CHLORIDE (BEAKER) 105 meq/L 98-107 (test code = 382) CO2 (BEAKER) (test 26 meq/L 22-29 code = 355) BLOOD UREA NITROGEN 10 mg/dL 7-21 (BEAKER) (test code = 354) CREATININE (BEAKER) 0.87 mg/dL 0.57-1.25 Specimen slightly (test code = 358) hemolyzed GLUCOSE RANDOM 89 mg/dL 70-105 (BEAKER) (test code = 652) CALCIUM (BEAKER) 8.0 mg/dL 8.4-10.2 L (test code = 697) EGFR (BEAKER) (test 89 mL/min/1.73 ESTIMA SHAKEEL GFR IS code = 1092) sq m NOT ACCURATE CREATININE CLEARANCE IN PREDICTING GLOMERULAR FILTRATION RATE . ESTIMATED GFR I S NOT APPLICABLE FOR DIALYSIS PATIEN TS. Treasurer ID - DANGELO MHemoglobin and [id number] 05:45:00 Test Item Value Reference Range Interpretation Comments Hemoglobin (test code = 11.2 13.7- 17.5 GM/DL L 786-4) Hematocrit (test code = 32.5 % 40.1-51 L 4544-3) BERNICE (test code = BERNICE) Treasurer ID - [id number] Lab Interpretation (test Abnormal code = 51788-3) [facility] HospitalHEMOGLOBIN AND [id number] 05:45:00 Test Item Value Reference Range Interpretation Comments HEMOGLOBIN (BEAKER) (test code = 11.2 GM/DL 13.7-17.5 L 410) HEMATOCRIT (BEAKER) (test code = 32.5 % 40.1-51.0 L 411) Treasurer ID - 6000BASIC METABOLIC [id number] 06:58:00 Test Item Value Reference Range Interpretation Comments SODIUM (BEAKER) 140 meq/L 136-145 (test code = 381) POTASSIUM (BEAKER) 3.2 meq/L 3.5-5.1 L (test code = 379) CHLORIDE (BEAKER) 108 meq/L 98-107 H (test code = 382) CO2 (BEAKER) (test 25 meq/L 22-29 code = 355) BLOOD UREA NITROGEN 11 mg/dL 7-21 (BEAKER) (test code = 354) CREATININE (BEAKER) 0.98 mg/dL 0.57-1.25 (test code = 358) GLUCOSE RANDOM 106 mg/dL 70-105 H (BEAKER) (test code = 652) CALCIUM (BEAKER) 7.8 mg/dL 8.4-10.2 L (test code = 697) EGFR (BEAKER) (test 77 mL/min/1.73 ESTIMA SHAKEEL GFR IS code = 1092) sq m NOT ACCURATE CREATININE CLEARANCE IN PREDICTING GLOMERULAR FILTRATION RATE . ESTIMATED GFR I S NOT APPLICABLE FOR DIALYSIS PATIEN TS. Treasurer ID - DANGELO MHEMOGLOBIN AND [id number] 05:37:00 Test Item Value Reference Range Interpretation Comments HEMOGLOBIN (BEAKER) (test code = 11.3 GM/DL 13.7-17.5 L 410) HEMATOCRIT (BEAKER) (test code = 32.6 % 40.1-51.0 L 411) Treasurer ID - 6000BASIC METABOLIC [id number] 16:33:00 Test Item Value Reference Range Interpretation Comments SODIUM (BEAKER) 142 meq/L 136-145 (test code = 381) POTASSIUM (BEAKER) 3.6 meq/L 3.5-5.1 (test code = 379) CHLORIDE (BEAKER) 109 meq/L 98-107 H (test code = 382) CO2 (BEAKER) (test 25 meq/L 22-29 code = 355) BLOOD UREA NITROGEN 11 mg/dL 7-21 (BEAKER) (test code = 354) CREATININE (BEAKER) 1.07 mg/dL 0.57-1.25 (test code = 358) GLUCOSE RANDOM 144 mg/dL 70-105 H (BEAKER) (test code = 652) CALCIUM (BEAKER) 8.1 mg/dL 8.4-10.2 L (test code = 697) EGFR (BEAKER) (test 70 mL/min/1.73 ESTIMA SHAKEEL GFR IS code = 1092) sq m NOT ACCURATE CREATININE CLEARANCE IN PREDICTING GLOMERULAR FILTRATION RATE . ESTIMATED GFR I S NOT APPLICABLE FOR DIALYSIS PATIEN TS. Treasurer ID - AAHAMIDHEMOGLOBIN AND [id number] 16:19:00 Test Item Value Reference Range Interpretation Comments HEMOGLOBIN (BEAKER) (test code = 11.6 GM/DL 13.7-17.5 L 410) HEMATOCRIT (BEAKER) (test code = 34.8 % 40.1-51.0 L 411) Treasurer ID - 6000ABORH, [id number] 08:10:00 Test Item Value Reference Range Interpretation Comments ABO Grouping (test code = 2588) B Rh Factor (test code = 2589) [facility]G [facility] + Reflex to Culture 2019-08-24 08:04:00 Test Item Value Reference Range Interpretation Comments Color, UA (test code = Yellow 5778-6) Clarity, UA (test code = Clear 5767-9) Specific [place], UA (test 1.011 1.001-1.035 code = 5811-5) pH, UA (test code = 8.5 5.0-8.0 H 5803-2) Protein, UA (test code = Negative Negative 56273-7) Glucose, UA (test code = Negative Negative 365) Ketones, UA (test code = Negative Negative 2514-8) Bilirubin, UA (test code = Negative Negative 31460-0) Blood, UA (test code = Negative Negative 98001-4) Nitrite, UA (test code = Negative Negative 5802-4) Leukocytes, UA (test code Negative Negative = 5799-2) Urobilinogen, UA (test 0.2 mg/dL 0.2-1 code = 63176-2) RBC, UA (test code = 0 /HPF 72274-7) WBC, UA (test code = 1 /HPF 5821-4) Squam Epithel, UA (test 1 /HPF code = 90534-6) Specimen Source (test code = 2795) BERNICE (test code = BERNICE) Treasurer ID - [auto]Treasurer ID - tech Lab Interpretation (test Abnormal code = 79141-1) [facility]UR[facility]IS [facility]/ REFLEX URINE [id number] 08:04:00 Test Item Value Reference Range Interpretation Comments COLOR (BEAKER) (test code = 470) Yellow CLARITY (BEAKER) (test code = 469) Clear SPECIFIC GRAVITY UA (BEAKER) (test 1.011 1.001-1.035 code = 468) PH UA (BEAKER) (test code = 467) 8.5 5.0-8.0 H PROTEIN UA (BEAKER) (test code = Negative Negative 464) GLUCOSE UA (BEAKER) (test code = Negative Negative 365) KETONES UA (BEAKER) (test code = Negative Negative 371) BILIRUBIN UA (BEAKER) (test code = Negative Negative 462) BLOOD UA (BEAKER) (test code = 461) Negative Negative NITRITE UA (BEAKER) (test code = Negative Negative 465) LEUKOCYTE ESTERASE UA (BEAKER) Negative Negative (test code = 466) UROBILINOGEN UA (BEAKER) (test code 0.2 mg/dL 0.2-1.0 = 463) RBC UA (BEAKER) (test code = 519) 0 /HPF WBC UA (BEAKER) (test code = 520) 1 /HPF SQUAMOUS EPITHELIAL (BEAKER) (test 1 /HPF code = 516) SOURCE(BEAKER) (test code = 2795) Treasurer ID - [auto]Treasurer ID - techCBC with platelet count + automated diff 2019-08-24 07:29:00 Test Item Value Reference Range Interpretation Comments WBC (test code = 6690-2) 6.8 3.5- 10.5 K/L RBC (test code = 789-8) 4.02 4.63- 6.08 M/L L MCHC (test code = 786-4) 35.0 32.3- 36.5 GM/DL L Hematocrit (test code = 4544-3) 38.0 % 40.1-51 L MCV (test code = 787-2) 94.5 fL 79-92.2 H MCH (test code = 785-6) 33.1 pg 25.7-32.2 H RDW (test code = 788-0) 13.1 % 11.6-14.4 Platelets (test code = 777-3) 190 150- 450 K/CU MM MPV (test code = 14939-0) 11.0 fL 9.4-12.4 nRBC (test code = 413) 0 0- 0 /100 WBC % Neutros (test code = 429) 71 % % Lymphs (test code = 430) 21 % % Monos (test code = 431) 6 % % Eos (test code = 432) 1 % % Baso (test code = 437) 0 % # Neutros (test code = 670) 4.78 1.78- 5.38 K/L # Lymphs (test code = 414) 1.43 1.32- 3.57 K/L # Monos (test code = 415) 0.43 0.30- 0.82 K/L # Eos (test code = 416) 0.07 0.04- 0.54 K/L # Baso (test code = 417) 0.03 0.01- 0.08 K/L Immature Granulocytes-Relative 0 % 0-1 (test code = 2801) Lab Interpretation (test code = Abnormal 21509-8) [facility] W/PLT COUNT & AUTO [id number] 07:29:00 Test Item Value Reference Range Interpretation Comments WHITE BLOOD CELL COUNT (BEAKER) 6.8 K/ L 3.5-10.5 (test code = 775) RED BLOOD CELL COUNT (BEAKER) 4.02 M/ L 4.63-6.08 L (test code = 761) HEMOGLOBIN (BEAKER) (test code = 13.3 GM/DL 13.7-17.5 L 410) HEMATOCRIT (BEAKER) (test code = 38.0 % 40.1-51.0 L 411) MEAN CORPUSCULAR VOLUME (BEAKER) 94.5 fL 79.0-92.2 H (test code = 753) MEAN CORPUSCULAR HEMOGLOBIN 33.1 pg 25.7-32.2 H (BEAKER) (test code = 751) MEAN CORPUSCULAR HEMOGLOBIN CONC 35.0 GM/DL 32.3-36.5 (BEAKER) (test code = 752) RED CELL DISTRIBUTION WIDTH 13.1 % 11.6-14.4 (BEAKER) (test code = 412) PLATELET COUNT (BEAKER) (test 190 K/CU MM 150-450 code = 756) MEAN PLATELET VOLUME (BEAKER) 11.0 fL 9.4-12.4 (test code = 754) NUCLEATED RED BLOOD CELLS 0 /100 WBC 0-0 (BEAKER) (test code = 413) NEUTROPHILS RELATIVE PERCENT 71 % (BEAKER) (test code = 429) LYMPHOCYTES RELATIVE PERCENT 21 % (BEAKER) (test code = 430) MONOCYTES RELATIVE PERCENT 6 % (BEAKER) (test code = 431) EOSINOPHILS RELATIVE PERCENT 1 % (BEAKER) (test code = 432) BASOPHILS RELATIVE PERCENT 0 % (BEAKER) (test code = 437) NEUTROPHILS ABSOLUTE COUNT 4.78 K/ L 1.78-5.38 (BEAKER) (test code = 670) LYMPHOCYTES ABSOLUTE COUNT 1.43 K/ L 1.32-3.57 (BEAKER) (test code = 414) MONOCYTES ABSOLUTE COUNT (BEAKER) 0.43 K/ L 0.30-0.82 (test code = 415) EOSINOPHILS ABSOLUTE COUNT 0.07 K/ L 0.04-0.54 (BEAKER) (test code = 416) BASOPHILS ABSOLUTE COUNT (BEAKER) 0.03 K/ L 0.01-0.08 (test code = 417) IMMATURE GRANULOCYTES-RELATIVE 0 % 0-1 PERCENT (BEAKER) (test code = 2801) Type and screen, [id number] 16:34:00 Test Item Value Reference Range Interpretation Comments ABO/RH AUTOMATED (BEAKER) (test B NEGATIVE code = 2260) Ab Scrn (test code = 890-4) NEGATIVE [facility] HospitalElectrolytes2020-01-[facility] 15:49:00 Test Item Value Reference Range Interpretation Comments Sodium (test code = 2951-2) 139 meq/L 136-145 Potassium (test code = 2823-3) 3.6 meq/L 3.5-5.1 Chloride (test code = 2075-0) 102 meq/L 98-107 CO2 (test code = 2028-9) 26 meq/L 22-29 Lab Interpretation (test code = Normal 79470-3) [facility] and [id number] 15:49:00 Test Item Value Reference Range Interpretation Comments BUN (test code = 11 mg/dL 7-21 3094-0) Creatinine (test code 1.05 mg/dL 0.57-1.25 = 2160-0) EGFR (test code = 72 mL/min/1.73 [place] [address]-7) ACCURATE CREATININE PATRICIA CHRISTIAN IN PREDICTING GLOMERULAR FILT RATION RATE. ESTIMATED GFR IS NOT APPLICAB LE FOR DIALYSIS PATIEN TS. [facility] 15:49:00 Test Item Value Reference Range Interpretation Comments SODIUM (BEAKER) (test code = 381) 139 meq/L 136-145 POTASSIUM (BEAKER) (test code = 3.6 meq/L 3.5-5.1 379) CHLORIDE (BEAKER) (test code = 382) 102 meq/L 98-107 CO2 (BEAKER) (test code = 355) 26 meq/L 22-29 BUN AND [id number] 15:49:00 Test Item Value Reference Range Interpretation Comments BLOOD UREA NITROGEN 11 mg/dL 7-21 (BEAKER) (test code = 354) CREATININE (BEAKER) 1.05 mg/dL 0.57-1.25 (test code = 358) EGFR (BEAKER) (test 72 mL/min/1.73 ESTIMA SHAKEEL GFR IS code = 1092) sq m NOT ACCURATE CREATININE CLEARANCE IN PREDICTING GLOMERULAR FILTRATION RATE . ESTIMATED GFR I S NOT APPLICABLE FOR DIALYSIS PATIEN TS. [id number] 15:33:00 Test Item Value Reference Range Interpretation Comments Hemoglobin (test code = 786-4) 13.8 13.7- 17.5 GM/DL Lab Interpretation (test code = Normal 16331-5) [facility] [id number] 15:33:00 Test Item Value Reference Range Interpretation Comments Platelets (test code = 777-3) 225 150- 450 K/CU MM Lab Interpretation (test code = Normal 04655-7) [facility] 15:33:00 Test Item Value Reference Range Interpretation Comments HEMOGLOBIN (BEAKER) (test code = 13.8 GM/DL 13.7-17.5 410) PLATELET [id number] 15:33:00 Test Item Value Reference Range Interpretation Comments PLATELET COUNT (BEAKER) (test 225 K/CU MM 150-450 code = 756)
--- OUTSIDE RECORDS SUMMARY | 2020-03-20 12:49 | XMS REPORT | Summary of Care ---
:1955 Author Organization [facility] [place] [address] Care Team Providers Name Role Phone AdamsonSteve Primary Care Provider Reason for Visit Reason Comments Prostate Cancer Encounter Details Date Type Department Care Team Description 01/05/2020 Office Visit [facility] Carlitos Pugh M D Prostate Cancer Medicine Urology [address] [place] [address] [address] FLO[address], [address], [place] [address] [place] [address] [phone] Allergies No Known Allergiesdocumented as of this encounter (statuses as of 01/05/2020) Medications Medication Sig Dispensed Refills Start Date End Date Status atorvastatin (LIPITOR) 10 0 04/23/2019 Active MG tablet lisinopril (PRINIVIL, 0 03/30/2019 Active ZESTRIL) 40 MG tablet hydrochlorothiazide Take 25 mg by 0 Active (HYDRODIURIL) 25 MG tablet mouth daily. acetaminophen (TYLENOL) 500 Take by 0 Active mg tablet mouth every 6 hours as needed for Pain. Hospital, Clinic, or Other Ordered Dose Route Frequency Start Date End Date Status Facility Administered Medication leuprolide (LUPRON) 30 mg IM ONCE 01/05/2020 0 Ended injection 30 mgIndications: Prostate cancer (HCCode) documented as of this encounter (statuses as of 01/05/2020) Active Problems Not on filedocumented as of this encounter (statuses as of 01/05/2020) Social History Tobacco Use Types Packs/Day Years Used Date Former Smoker Smokeless Tobacco: Current User Alcohol Use Drinks/Week oz/Week Comments Not Currently Sex Assigned at Date Recorded Male 01/03/2020 2:40 PM CDT Job Start Date Occupation Industry Not on file Not on file Not on file Travel History Travel Start Travel End No recent travel history available. COVID-19 Exposure Response Date Recorded In the last month, have you been in contact with No / Unsure 01/05/2020 9:28 AM CDT someone who was confirmed or suspected to have Coronavirus / COVID-19? documented as of this encounter Last Filed Vital Signs Vital Sign Reading Time Taken Comments Blood Pressure 133/80 01/05/2020 9:52 AM CDT Pulse 67 01/05/2020 9:52 AM CDT Temperature 36.4 C (97.5 F) 01/05/2020 9:52 AM CDT Respiratory Rate - - Oxygen Saturation - - Inhaled Oxygen Concentration - - Weight 104.3 kg (230 lb) 01/05/2020 9:52 AM CDT Height 182.9 cm (6') 01/05/2020 9:52 AM CDT Body Mass Index 31.19 01/05/2020 9:52 AM CDT documented in this encounter Progress Notes Carlitos Pugh MD - 01/05/2020 9:45 AM CD08/24/2019 - RALP + PLND, DK / EW / UB. 3+ / 0 Large prostate Median lobe BN reconstruction Path - GL 5+4, 85G prostate, 25% cancer ( + ) LN - 2/20 ( + ) OSBALOD ( + ) SVI - bilateral ( + ) SM Had Lupron 08/24/2019 in anticipation of local XRT Overall - doing well Continent, no pads Passed 2 - 3 Lapraties in the urine Reassured Rectal - smooth P: labs today Lupron today FU ~ 6 weeks for XRT ref Will consider 2 years of Lupron ( until 08/23 ) documented in this encounter Plan of Treatment Date Type Specialty Care Team Description 02/12/2020 Office Visit Urology Carlitos Pugh MD [address] [facility] [address]LO[address], [place], [place] [address] Health Maintenance Due Date Last Done Comments COLON CANCER SCREENING: COLONOSCOPY 1955 TETANUS SHOT (ADULT) 1971 BMI FOLLOW UP PLAN 1974 HEPATITIS C SCREENING 1974 HIV SCREENING 1974 FLU VACCINE > 6 MONTHS 03/02/2020 documented as of this encounter Results Not on filedocumented in this encounter Visit Diagnoses Diagnosis Prostate cancer (HCCode) - Primary Malignant neoplasm of prostate documented in this encounter Administered Medications Medication Order MAR Action Action Date Dose Rate Site leuprolide (LUPRON) Given 01/05/2020 10:34 AM 30 mg Left Buttocks injection 30 mg CDT 30 mg, Intramuscular, ONCE, 1 dose, Wed01/05/20 at 1015 documented in this encounter Insurance Payer Benefit Plan / Subscriber ID Effective Dates Phone Addre ss Type Group [employer] xxxxxxxxxxxx 2019-Nelida OSBORN [id number] [facility] [place] [address] documented as of this encounter
--- OUTSIDE RECORDS SUMMARY | 2020-03-20 12:49 | XMS REPORT ---
:1955 Author Organization [employer] Care Team Providers Name Role Phone Juan Diego Suhas Provider Role Unavailable Allergies No Known Allergies Problems Problem Type Condition Code Onset Dates Condition Statu s Problem Mixed hyperlipidemia E78.2 Active Problem Elevated prostate specific antigen R97.20 Active (PSA) Problem Eczema, unspecified type L30.9 Act zacarias Problem History of skin cancer Z85.828 Activ e Problem Benign essential hypertension I10 Active Problem History of malignant neoplasm of Z85.46 Active prostate Problem Adult BMI 31.0-31.9 kg/sq m Z68.31 Active Problem Prostate cancer C61 Active Problem BPH without urinary obstruction N40.0 Active Problem Former smoker Z87.891 Active Problem BPH loc w urin obs/LUTS N40.1 Acti ve Problem Benign prostatic hyperplasia with N40.1 Active lower urinary tract symptoms Medications No Known Medications Results No Known Results Summary Purpose eClinicalBkam Submission
--- OUTSIDE RECORDS SUMMARY | 2020-03-20 12:49 | XMS REPORT | Summary of Care ---
:1955 Author Organization [facility] [place] [address] Care Team Providers Name Role Phone AdamsonSteve Primary Care Provider Reason for Visit Reason Comments Prostate Cancer Encounter Details Date Type Department Care Team Description 02/12/2020 Office Visit [facility] Carlitos Pugh M D Prostate Cancer Medicine Urology [address] [place] [address] 10TH FLOOR, [address] 10[address], [place] [address] [place] [address] [phone] Allergies No Known Allergiesdocumented as of this encounter (statuses as of 02/12/2020) Medications Medication Sig Dispensed Refills Start Date End Date Status atorvastatin (LIPITOR) 10 0 04/23/2019 Active MG tablet lisinopril (PRINIVIL, 0 03/30/2019 Active ZESTRIL) 40 MG tablet hydrochlorothiazide Take 25 mg by 0 Active (HYDRODIURIL) 25 MG tablet mouth daily. acetaminophen (TYLENOL) Take by mouth 0 Active 500 mg tablet every 6 hours as needed for Pain. cyclobenzaprine (FLEXERIL) TAKE ONE 0 Active 10 MG tablet TABLET BY MOUTH AT BEDTIME NEEDED documented as of this encounter (statuses as of 02/12/2020) Active Problems Not on filedocumented as of this encounter (statuses as of 02/12/2020) Social History Tobacco Use Types Packs/Day Years [...] been in contact with No / Unsure 02/12/2020 12:31 PM CDT someone who was confirmed or suspected to have Coronavirus / COVID-19? documented as of this encounter Last Filed Vital Signs Vital Sign Reading Time Taken Comments Blood Pressure 133/81 02/12/2020 1:21 PM CDT Pulse 57 02/12/2020 1:21 PM CDT Temperature 36.7 C (98.1 F) 02/12/2020 1:21 PM CDT Respiratory Rate - - Oxygen Saturation - - Inhaled Oxygen Concentration - - Weight 102.1 kg (225 lb) 02/12/2020 1:21 PM CDT Height 182.9 cm (6') 02/12/2020 1:21 PM CDT Body Mass Index 30.52 02/12/2020 1:21 PM CDT documented in this encounter Progress Notes Carlitos Pugh MD - 02/12/2020 1:00 PM CD08/24/2019 - RALP + PLND, DK / EW / UB. 3+ / 0 Large prostate Median lobe BN reconstruction Path - GL 5+4, 85G prostate, 25% cancer ( + ) LN - 09/21 ( + ) OSBALDO ( + ) SVI - bilateral ( + ) Had Lupron 08/24/2019 in anticipation of local XRT Overall - doing well Continent, no pads Passed 2 - 3 Lapraties in the urine Reassured Rectal - smooth P: labs today Lupron today FU ~ 6 weeks for XRT ref Will consider 2 years of Lupron ( until 08/23 ) ------- 2019: 01/05/20 - PSA < 0.006, T - 10 Here for FU Now 6 months post RALP Received Lupron last - 01.05.2020 Needs next Lupron early May P: refer for local XRT to the prostate bed documented in this encounter Plan of Treatment Name Type Priority Associated Diagnoses Order S chedule PSA ULTRASENSITIVE Lab Routine Prostate cancer Ordere d: 02/12/2020 (HCCode) TESTOSTERONE-TOTAL(URO Lab Routine Prostate cancer Ex pected: 02/26/2020 DEPT) (HCCode) (Approximate), Expires: 2019 Health Maintenance Due Date Last Done Comments COLON CANCER SCREENING: COLONOSCOPY 1955 TETANUS SHOT (ADULT) 1971 BMI FOLLOW UP PLAN 1974 HEPATITIS C SCREENING 1974 HIV SCREENING 1974 FLU VACCINE > 6 MONTHS 03/02/2020 documented as of this encounter Results Not on filedocumented in this encounter Visit Diagnoses Diagnosis Prostate cancer (HCCode) - Primary Malignant neoplasm of prostate documented in this encounter Insurance Payer Benefit Plan / Subscriber ID Effective Dates Phone Addre ss Type Group [employer] xxxxxxxxxxxx 2019-Nelida OSBORN [id number] [facility] [place] [address] documented as of this encounter
--- OUTSIDE RECORDS SUMMARY | 2020-03-20 12:49 | XMS REPORT ---
:1955 Author Organization [employer] Care Team Providers Name Role Phone Suhas Adamson Provider Role Unavailable Allergies, Adverse Reactions, Alerts Substance Reaction Event Type N.K.D.A. Info Not Available Non Drug Allergy Problems Problem Type Condition Code Onset Dates Condition Statu s Problem Eczema, unspecified type L30.9 Act zacarias Problem Elevated prostate specific antigen R97.20 Active (PSA) Problem Former smoker Z87.891 Active Problem Prostate cancer C61 Active Assessment Open wound of finger, initial S61.209A Active encounter Problem History of malignant neoplasm of Z85.46 Active prostate Problem Acute right-sided low back pain M54.41 Active with right-sided sciatica Problem Benign prostatic hyperplasia with N40.1 Active lower urinary tract symptoms Problem BPH without urinary obstruction N40.0 Active Problem Adult BMI 31.0-31.9 kg/sq m Z68.31 Active Problem BPH loc w urin obs/LUTS N40.1 Acti ve Assessment Eczema, unspecified type L30.9 Act zacarias Assessment S/P prostatectomy Z90.79 Active Assessment History of malignant neoplasm of Z85.46 Active prostate Assessment Adult BMI 31.0-31.9 kg/sq m Z68.31 Active Problem History of skin cancer Z85.828 Activ e Assessment Mixed hyperlipidemia E78.2 Active Problem Benign essential hypertension I10 Active Assessment Benign essential hypertension I10 Active Problem Mixed hyperlipidemia E78.2 Active Medications Medication Code Code Instructions Start End Status Dosage System Date Date Lipitor ND 19790862677 10 MG Orally Active 1 table t Once a day Cyclobenzaprine HCl ND 08779682186 10 MG Active TAKE ONE TABLET BY MOUTH AT BEDTIME NEEDED Hydrochlorothiazide ND 58823502625 25 MG Orally Act zacarias 1 tablet Once a day in the morning Lisinopril ND 00879394189 40 MG Orally Active 1 ta blet Once a day Aspirin Adult Low Dose [facility][NOTE 3] 47400532079 81 MG Orally Active 1 tablet Once a day Results No Known Results Summary Purpose eClinicalWorks Submission
[2020-03-20] MEDS ORDERED: NA CHLORIDE 0.9% 1,000 ML ONE ×3 (16:16→18:42)
[2020-03-20 16:25] LABS: Absolute Lymphocytes (CBC) 0.6 K/uL (0.7-4.9); Basophils % 0.1 % (0-1.3); Hematocrit 46.7 % (39.6-49.0); Lymphocytes % 5.4 % (15.3-44.8); MPV 10.3 fL (7.6-11.3); RBC Red Blood Cell Count 4.95 M/uL (4.33-5.43)
[2020-03-20 16:44] LABS: Albumin 4.1 g/dL (3.4-5.0); Bilirubin Direct 0.1 mg/dL (0-0.2); Bilirubin Total 0.6 mg/dL (0.2-1.0)
[2020-03-20 17:07] LABS: Potassium 2.9 mmol/L (3.5-5.1)
[2020-03-20 17:20] LABS: Platelet Estimate DECR; Urine White Blood Cell Casts OK
[2020-03-20 17:21] LABS: Blood Morphology Comment NOT SEEN (NOT SEEN)
[2020-03-20] MEDS ORDERED: POTASSIUM CL SA 10 MEQ TAB PO ONE (17:29)
[2020-03-20] MEDS ORDERED: KCL 20 MEQ/100 mL IVPB 20 MEQ/100 ML BAG IV ONE (17:29)
--- NOTE | 2020-03-20 17:31 | ER ---
Nurse's Notes [facility] Name: Balwinder Pinzon Age: 64 yrs Sex: Male : 1955 Arrival Date: 03/20/2020 Time: 12:49 Bed 24 Private MD: Diagnosis: Hypokalemia;Dehydration;Acute kidney failure;Acute Gastroenteritis Presentation: 03/20 12:59 Chief complaint: Patient states: N/V since , got worse this . N/V/D with ll1 abdominal cramping since this weekend. His doctor believed its food poisoning. Coronavirus screen: Client denies travel out of the [place] in the last 14 days. At this time, the client does not indicate any symptoms associated with coronavirus-19. Ebola Screen: Patient denies travel to an Ebola-affected area in the 21 days before illness onset. Initial Sepsis Screen: Does the patient meet any 2 criteria? HR > 90 bpm. No. Patient's initial sepsis screen is negative. Risk Assessment: Do you want to hurt yourself or someone else? Patient reports no desire to harm self or others. Onset of symptoms was March 13, 2020. 12:59 Method Of Arrival: Ambulatory ll1 12:59 Acuity: EMILY 3 ll1 22:58 Initial Sepsis Screen: Does the patient have a suspected source of infection? No. ls4 Patient's initial sepsis screen is negative. Triage Assessment: 16:13 General: Appears uncomfortable, Behavior is anxious, fussy. Pain: Complains of pain in ls4 abdomen Pain currently is 10 out of 10 on a pain scale. Neuro: No deficits noted. GI: Reports diarrhea, intolerance of fluids, intolerance of food, nausea, vomiting, since 5 Days. Derm: Skin is pink, warm \T\ dry. Historical: - Allergies: 13:02 No Known Allergies; ll1 - PMHx: 13:02 Hypertension; ll1 - PSHx: 13:02 prostate surgery-with radiation; ll1 - Immunization history:: Flu vaccine is up to date. - Social history:: Smoking status: Patient denies any tobacco usage or history of. Patient/guardian denies using alcohol, street drugs. Screenin:01 Abuse screen: Denies threats or abuse. Denies injuries from another. ls4 16:01 Nutritional screening: No deficits noted. Tuberculosis screening: No symptoms or risk ls4 factors identified. Fall Risk None identified. Assessment: 15:06 General: Appears uncomfortable, Behavior is fussy. Neuro: No deficits noted. ls4 Cardiovascular: No deficits noted. Respiratory: No deficits noted. GI: Abdomen is round non-distended, Last BM at 13:30. Bowel sounds hyperactive in right upper quadrant, left upper quadrant, right lower quadrant and left lower quadrant Abd is soft X 4 quads Abdomen is tender to palpation X 4 quads. Reports lower abdominal pain, upper abdominal pain, cramping, diarrhea, intolerance of fluids, intolerance of food. : No deficits noted. No signs and/or symptoms were reported regarding the genitourinary system. EENT: No deficits noted. No signs and/or symptoms were reported regarding the EENT system. Derm: Skin is pink, warm \T\ dry. Skin temperature is. Musculoskeletal: No deficits noted. No signs and/or symptoms reported regarding the musculoskeletal system. Vital Signs: 12:59 BP 138 / 95; Pulse 112; Resp 18; Temp 97.9; Pulse Ox 98% ; Weight 98.88 kg; Height 6 ll1 ft. 0 in. (182.88 cm); Pain 10/10; 17:00 BP 129 / 77; Pulse 108; Resp 14; Temp 98.0; Pulse Ox 98% on R/A; Pain 5/10; ls4 18:00 BP 119 / 74; Pulse 98; Resp 18; Pulse Ox 99% on R/A; ls4 19:00 BP 117 / 62; Pulse 64; Resp 16; Pulse Ox 100% on R/A; ls4 22:00 BP 122 / 64; Pulse 64; Resp 16; Pulse Ox 99% ; ls4 23:12 BP 124 / 65; Pulse 69; Resp 14; Pulse Ox 99% ; ls4 12:59 Body Mass Index 29.57 (98.88 kg, 182.88 cm) ll1 ED Course: 12:49 Patient arrived in ED. ds1 13:01 Triage completed. ll1 13:02 Arm band placed on. ll1 13:32 Roxanne Bartlett FNP-C is [facility]. kb 13:32 Figueroa Murillo MD is Attending Physician. kb 15:04 Stephen East PA is PHCP. jr8 15:04 Figueroa Murillo MD is Attending Physician. jr8 15:42 Jael Desouza, MAYITO is Primary Nurse. iw 16:01 Patient has correct armband on for positive identification. Bed in low position. Call ls4 light in reach. Side rails up X 1. triage licensed practical nurse on. Pulse ox on. NIBP on. Pillow given. Verbal reassurance given. Diet: Patient is NPO. Patient is placed in psych hold. 16:01 No provider procedures requiring assistance completed. Initial lab(s) drawn, by me, ls4 sent to lab. Inserted saline lock: 20 gauge in right antecubital area, using aseptic technique. Blood collected. 16:01 Patient maintains SpO2 saturation greater than 95% on room air. ls4 17:26 CT Abd/Pelvis - Without Contrast In Process Unspecified. EDMS 17:29 Grover Borja is Hospitalizing Provider. jr8 20:40 CDIFF Sent. ls4 20:41 Stool Culture Sent. ls4 20:41 Ova And Parasites Sent. ls4 20:41 Fecal Leukocyte Stain Sent. ls4 20:41 Rotavirus Antigen Sent. ls4 23:37 Patient admitted, IV remains in place. intact, No redness/swelling at site. ls4 Administered Medications: 14:10 Drug: NS 0.9% 1000 ml Route: IV; Rate: 1000 ml; Site: right antecubital; ls4 23:44 Follow up: Response: No adverse reaction; Marked relief of symptoms; 1000 ml infused, ls4 infusion complete at 1810 17:20 Drug: NS 0.9% 1000 ml Route: IV; Rate: 100 ml/hr; Site: right antecubital; ls4 18:30 Follow up: IV Status: Completed infusion ls4 23:46 Follow up: IV Status: Infusion continued upon admission ls4 17:20 Drug: Potassium Chloride 40 mEq Route: PO; ls4 17:50 Follow up: Response: No adverse reaction; Marked relief of symptoms ls4 17:20 Drug: Potassium Chloride 20 mEq Route: IV; Rate: calculated rate; Site: right ls4 antecubital; 20:29 Follow up: Response: No adverse reaction; IV Status: Completed infusion; IV Intake: ls4 100ml Intake: 20:29 IV: 100ml; Total: 100ml. ls4 Outcome: 17:30 Decision to Hospitalize by Provider. jr8 23:13 Condition: stable ls4 23:37 Admitted to Med/surg accompanied by tech, via wheelchair, room 223, with chart, Report ls4 called to emily EDMOND 23:37 Discharge instructions given to patient, Instructed on the need for admit, Demonstrated understanding of instructions. 23:40 Patient left the ED. ls4 Signatures: Dispatcher [employer] EDKY Roxanne Bartlett, FOOD SAFETY TECHNICIAN-C FOOD SAFETY TECHNICIAN-CkSteffi Means ds1 Jael Desouza RN RN Stephen Dawkins PA PA jr8 Marlena Carpenter RN RN ls4 Alona Gómez RN RN ll1 Corrections: (The following items were deleted from the chart) 23:45 15:10 Response: No adverse reaction; Marked relief of symptoms ls4 ls4 23:46 18:30 IV Status: Completed infusion ls4 ls4
--- NOTE | 2020-03-20 17:31 | EDPHYS ---
Physician Documentation [facility] Name: Balwinder Pinzon Age: 64 yrs Sex: Male : 1955 Arrival Date: 03/20/2020 Time: 12:49 Bed 24 Private MD: ED Physician Figueroa Murillo HPI: 03/20 16:13 This 64 yrs old Male presents to ER via Ambulatory with complaints of jr8 Nausea/Vomiting, Abdominal Pain. 16:13 The patient presents to the emergency department with nausea, vomiting, diarrhea, jr8 abdominal pain, of the abdomen diffusely, described as crampy. Onset: The symptoms/episode began/occurred gradually, 6 day(s) ago. Possible causes: unknown. The symptoms are aggravated by nothing. The symptoms are alleviated by nothing. Associated signs and symptoms: The patient has no apparent associated signs or symptoms. Severity of symptoms: At their worst the symptoms were moderate in the emergency department the symptoms are unchanged. The patient has not experienced similar symptoms in the past. The patient has not recently seen a physician. Historical: - Allergies: 13:02 No Known Allergies; ll1 - PMHx: 13:02 Hypertension; ll1 - PSHx: 13:02 prostate surgery-with radiation; ll1 - Immunization history:: Flu vaccine is up to date. - Social history:: Smoking status: Patient denies any tobacco usage or history of. Patient/guardian denies using alcohol, street drugs. ROS: 16:13 Eyes: Negative for injury, pain, redness, and discharge, ENT: Negative for injury, jr8 pain, and discharge, Neck: Negative for injury, pain, and swelling, Cardiovascular: Negative for chest pain, palpitations, and edema, Respiratory: Negative for shortness of breath, cough, wheezing, and pleuritic chest pain, Back: Negative for injury and pain, MS/Extremity: Negative for injury and deformity, Skin: Negative for injury, rash, and discoloration, Neuro: Negative for headache, weakness, numbness, tingling, and seizure. 16:13 Abdomen/GI: Positive for nausea, vomiting, and diarrhea, abdominal cramps, Negative for hematemesis, black/tarry stool, rectal pain, rectal bleeding, bowel incontinence, flatulence. Exam: 16:13 Eyes: Pupils equal round and reactive to light, extra-ocular motions intact. Lids and jr8 lashes normal. Conjunctiva and sclera are non-icteric and not injected. Cornea within normal limits. Periorbital areas with no swelling, redness, or edema. ENT: Nares patent. No nasal discharge, no septal abnormalities noted. Tympanic membranes are normal and external auditory canals are clear. Oropharynx with no redness, swelling, or masses, exudates, or evidence of obstruction, uvula midline. Mucous membranes moist. Neck: Trachea midline, no thyromegaly or masses palpated, and no cervical lymphadenopathy. Supple, full range of motion without nuchal rigidity, or vertebral point tenderness. No Meningismus. Cardiovascular: Regular rate and rhythm with a normal S1 and S2. No gallops, murmurs, or rubs. Normal PMI, no JVD. No pulse deficits. Respiratory: Lungs have equal breath sounds bilaterally, clear to auscultation and percussion. No rales, rhonchi or wheezes noted. No increased work of breathing, no retractions or nasal flaring. Back: No spinal tenderness. No costovertebral tenderness. Full range of motion. Skin: Warm, dry with normal turgor. Normal color with no rashes, no lesions, and no evidence of cellulitis. MS/ Extremity: Pulses equal, no cyanosis. Neurovascular intact. Full, normal range of motion. Neuro: Awake and alert, GCS 15, oriented to person, place, time, and situation. Cranial nerves II-XII grossly intact. Motor strength 5/5 in all extremities. Sensory grossly intact. Cerebellar exam normal. Normal gait. 16:13 Abdomen/GI: Inspection: obese Bowel sounds: active, all quadrants, Palpation: abdomen is soft and non-tender, in all quadrants, mass, is not appreciated, rebound tenderness, is not appreciated, voluntary guarding, is not appreciated, involuntary guarding, is not appreciated, no appreciated organomegaly, Indicators: McBurney's point is not tender, Sun's sign is negative, Rovsing's sign is negative, Liver: tenderness, is not appreciated. Vital Signs: 12:59 BP 138 / 95; Pulse 112; Resp 18; Temp 97.9; Pulse Ox 98% ; Weight 98.88 kg; Height 6 ll1 ft. 0 in. (182.88 cm); Pain 10/10; 17:00 BP 129 / 77; Pulse 108; Resp 14; Temp 98.0; Pulse Ox 98% on R/A; Pain 5/10; ls4 18:00 BP 119 / 74; Pulse 98; Resp 18; Pulse Ox 99% on R/A; ls4 19:00 BP 117 / 62; Pulse 64; Resp 16; Pulse Ox 100% on R/A; ls4 22:00 BP 122 / 64; Pulse 64; Resp 16; Pulse Ox 99% ; ls4 23:12 BP 124 / 65; Pulse 69; Resp 14; Pulse Ox 99% ; ls4 12:59 Body Mass Index 29.57 (98.88 kg, 182.88 cm) ll1 MDM: 15:04 Patient medically screened. jr8 17:29 Data reviewed: vital signs, nurses notes, lab test result(s), radiologic studies, CT jr8 scan. Data interpreted: Pulse oximetry: on room air is 98 %. Interpretation: normal. Counseling: I had a detailed discussion with the patient and/or guardian regarding: the historical points, exam findings, and any diagnostic results supporting the discharge/admit diagnosis, lab results, radiology results, the need for further work-up and treatment in the hospital. Physician consultation: Grover Borja was called at 17:29, was contacted at 17:29, regarding admission, and will see patient in ED. 03/20 15:23 Order name: Basic Metabolic Panel; Complete Time: 17:09 [facility] 03/20 15:23 Order name: CBC with Diff; Complete Time: 17:23 [facility] 03/20 15:23 Order name: Hepatic Function; Complete Time: 17: [facility] 03/20 15:23 Order name: Lipase; Complete Time: 17:09 [facility] 03/20 17:21 Order name: CBC Smear Scan; Complete Time: 17:23 EDMS 08 17:54 Order name: COVID-19 [facility] 03/20 20:07 Order name: SARS-COV-2 RT PCR; Complete Time: 20:20 EDMS 03/20 20:29 Order name: Rotavirus Antigen 4 03/20 20:29 Order name: Fecal Leukocyte Stain 4 03/20 20:29 Order name: Ova And Parasites 4 03/20 20:29 Order name: Stool Culture 4 03/20 20:29 Order name: CDIFF 4 03/20 21:17 Order name: Rotavirus Antigen; Complete Time: 21:28 [facility] 03/20 21:32 Order name: Fecal Leukocyte Stain; Complete Time: 21:34 [facility] 03/20 15:23 Order name: IV Saline Lock; Complete Time: 16:15 [facility] 03/20 15:23 Order name: Labs collected and sent; Complete Time: 16:15 8 03/20 17:11 Order name: CT Abd/Pelvis - Without Contrast; Complete Time: 17:54 [facility] Administered Medications: 14:10 Drug: NS 0.9% 1000 ml Route: IV; Rate: 1000 ml; Site: right antecubital; ls4 23:44 Follow up: Response: No adverse reaction; Marked relief of symptoms; 1000 ml infused, ls4 infusion complete at 1810 17:20 Drug: NS 0.9% 1000 ml Route: IV; Rate: 100 ml/hr; Site: right antecubital; ls4 18:30 Follow up: IV Status: Completed infusion ls4 23:46 Follow up: IV Status: Infusion continued upon admission ls4 17:20 Drug: Potassium Chloride 40 mEq Route: PO; ls4 17:50 Follow up: Response: No adverse reaction; Marked relief of symptoms ls4 17:20 Drug: Potassium Chloride 20 mEq Route: IV; Rate: calculated rate; Site: right ls4 antecubital; 20:29 Follow up: Response: No adverse reaction; IV Status: Completed infusion; IV Intake: ls4 100ml Disposition: 03/21 08:57 Co-signature as Attending Physician, Figueroa Murillo MD I agree with the assessment and kdr plan of care. Disposition: 03/20/20 17:30 Hospitalization ordered by Grover Borja for Inpatient Admission. Preliminary diagnosis are Hypokalemia, Dehydration, Acute kidney failure, Acute Gastroenteritis. - Bed requested for Telemetry/MedSurg (Inpatient). - Status is Inpatient Admission. ls4 - Condition is Stable. - Problem is new. - Symptoms have improved. Signatures: Dispatcher [employer] [facility] Figueroa Murillo MD MD [facility] [place] jr8 Jelly Greenwood RN RN tl1 Marlena Carpenter RN RN ls4 Alona Gómez RN RN ll1 Corrections: (The following items were deleted from the chart) 03/20 21:51 17:30 Hospitalization Ordered by Grover Borja for Inpatient Admission. Preliminary tl1 diagnosis is Hypokalemia; Dehydration; Acute kidney failure; Acute Gastroenteritis. Bed requested for Telemetry/MedSurg (Inpatient). Status is Inpatient Admission. Condition is Stable. Problem is new. Symptoms have improved. jr8 23:40 21:51 03/20/2020 17:30 Hospitalization Ordered by Grover Borja for Inpatient ls4 Admission. Preliminary diagnosis is Hypokalemia; Dehydration; Acute kidney failure; Acute Gastroenteritis. Bed requested for Telemetry/MedSurg (Inpatient). Status is Inpatient Admission. Condition is Stable. Problem is new. Symptoms have improved. tl1
--- NOTE | 2020-03-20 17:42 | RAD REPORT ---
EXAM DESCRIPTION: CT - Abdomen Pelvis Wo Contrast - 03/20/2020 5:26 pm CLINICAL HISTORY: Abdominal pain. ABD PAIN COMPARISON: No comparisons TECHNIQUE: CT imaging of the abdomen and pelvis was performed without contrast. Solid organ, bowel a nd vascular assessment is limited due to lack of IV and oral contrast. All CT scans are performed using dose optimization technique as appropriate and may include automated exposure control or mA/KV adjustment according to patient size. FINDINGS: The lower lung wolfe are clear.Cholelithiasis. The liver, spleen, pancreas, adrenal glands and kidneys are within normal limits for a limited non-co ntrast examination.Small benign right renal cysts. No bowel obstruction, free air, free fluid or abscess. The appendix is normal. The osseous structures are within normal limits. IMPRESSION: Cholelithiasis. A limited non-contrast examination was performed as detailed.
--- NOTE | 2020-03-20 18:21 | P.HP ---
Certification for Inpatient Patient admitted to: Observation With expected LOS: <2 Midnights Practitioner: I am a practitioner with admitting privileges, knowledge of patient current condition, hospital course, and medical plan of care. Services: Services provided to patient in accordance with Admission requirements found in Title 42 Section 412.3 of the Code of Federal Regulations Patient History Date of Service: 03/20/20 Reason for admission: Diarrhea and vomiting History of Present Illness: 64-year-old gentleman with a history of prostate cancer undergoing external beam radiation therapy presented emergency department with a complaint 60 history of diarrhea and a 3 day history of vomiting. The patient is symptoms started suddenly. He denied any fever. He said he has been feeling drained and weak since the past 2 days. He called his radiation oncologist will told him he may be experiencing food poisoning. The patient was directed to the ED to be evaluated. Here in the ED patient noted to have acute renal failure with creatinine up to 2.3 from normal. He also has severe hypokalemia with 2.9 and hyponatremia. No leukocytes. He was mildly tachycardic in the ED. No hypotension. Patient is hospitalized for further management of acute renal failure. Allergies No Known Allergies Allergy (Unverified 03/26/17 08:28) Home Medications: Atorvastatin Calcium [Lipitor] 10 mg PO BEDTIME 03/26/17 Lisinopril [Zestril] 40 mg PO DAILY 03/26/17 hydroCHLOROthiazide [Hydrochlorothiazide] 25 mg PO DAILY 03/26/17 - Past Medical/Surgical History -: Hypertension -: Hyperlipidemia -: Prostate cancer -: Left ankle surgery - Family History Mother -: Diabetes - Social History Smoking Status: Never smoker Alcohol use: No CD- Drugs: No Place of Residence: Home Review of Systems Other: Except as documented, all other systems reviewed and negative. Physical Examination - Physical Exam General: Alert, In no apparent distress, Oriented x3 HEENT: PERRLA, Mucous membr. moist/pink, EOMI Neck: Supple, JVD not distended Respiratory: Clear to auscultation bilaterally, Normal air movement Cardiovascular: No edema, Regular rate/rhythm, Normal S1 S2, No murmurs Capillary refill: <2 Seconds Gastrointestinal: Normal bowel sounds, Soft and benign, Non-distended, No tenderness Musculoskeletal: No swelling, No erythema Integumentary: No rashes Neurological: Normal strength at 5/5 x4 extr, Cranial nerves 3-12 intact - Studies Laboratory Data (last 24 hrs) 03/20/20 14:01: WBC 10.9, Hgb 16.2, Hct 46.7, Plt Count 88 L 03/20/20 14:01: Sodium 132 L, Potassium 2.9 L*, BUN 27 H, Creatinine 2.23 H, Glucose 126 H, Total Bilirubin 0.6, AST 14 L, ALT 26, Alkaline Phosphatase 147 H, Lipase 99 Assessment and Plan - Problems (Diagnosis) (1) Acute renal failure Current Visit: Yes Status: Acute (2) Prostate cancer Current Visit: Yes Status: Acute (3) Acute gastroenteritis Current Visit: Yes Status: Acute (4) Hypokalemia Current Visit: Yes Status: Acute (5) Hyponatremia Current Visit: Yes Status: Acute - Plan Place patient under observation. Acute renal failure likely prerenal but need to rule out obstructive uropathy given history of prostate cancer. Acute gastroenteritis may be infectious in origin versus radiation induced. Aggressive Hydration with IV normal saline. Correct potassium IV and orally. Monitor renal panel daily. No leukocytosis, no fever. No indication for antibiotics at this time. Screened for COVID. Hold home antihypertensives for now. Patient is currently normotensive. Hydralazine p.r.n. for BP spikes. - Advance Directives Does patient have a Living Will: No Does patient have a Durable POA for Healthcare: No
[2020-03-20] MEDS ORDERED: ONDANSETRON 4 MG/2 ML VIAL IV PRN (23:47)
[2020-03-20] MEDS ORDERED: ACETAMINOPHEN 500 MG TAB PO PRN (23:47)
[2020-03-20] MEDS ORDERED: HYDRALAZINE HCL 20 MG/ML VIAL IV PRN (23:47)
[2020-03-21] MEDS: NS KCL 20MEQ 20 MEQ/1,000 ML BAG IV SCH ×3 (00:18→17:22)
[2020-03-21] MEDS: HEPARIN 5000 UNIT/ML 1 ML VIAL SQ SCH ×3 (00:19→16:40)
[2020-03-21] MEDS: LOPERAMIDE HCL 2 MG CAPSULE PO PRN ×4 (00:43→21:16)
[2020-03-21 01:16] VITALS: BMI 30.4
[2020-03-21 06:32] LABS: Magnesium 1.9 mg/dL (1.8-2.4); Phosphorus 3.1 mg/dL (2.5-4.9); Potassium 3.2 mmol/L (3.5-5.1)
[2020-03-21 07:58] LABS: Absolute Lymphocytes (CBC) 0.5 K/uL (0.7-4.9); Basophils % 0.2 % (0-1.3); Hematocrit 37.9 % (39.6-49.0); Lymphocytes % 8.5 % (15.3-44.8); MPV 8.9 fL (7.6-11.3); RBC Red Blood Cell Count 4.05 M/uL (4.33-5.43)
[2020-03-21] MEDS ORDERED: POTASSIUM CL SA 10 MEQ TAB PO ONE ×2 (09:00→17:00)
[2020-03-21 09:09] LABS: Urine Appearance CLEAR; Urine Bilirubin NEGATIVE (NEG); Urine Blood TRACE (NEG); Urine Color YELLOW; Urine Glucose NEGATIVE (NEG); Urine Protein NEGATIVE (NEG); Urine Urobilinogen 0.2 mg/dL (0.2-1.0)
[2020-03-21 09:39] LABS: Urine Microscopic Reflex ORDER UMIC
[2020-03-21] MEDS ORDERED: MAGNESIUM SULFATE 1 gm IVPB 1 GM/100 ML BAG IV ONE (09:59)
[2020-03-21 10:33] LABS: Urine Bacteria <20 /HPF (NONE SEEN); Urine Culture Reflex Order NOT NEEDED; Urine RBC <5 /HPF (NONE SEEN)
[2020-03-21 11:12] LABS: C.diff Antigen/Toxin Ag neg : Tox neg (NEG : NEG)
--- NOTE | 2020-03-21 11:22 | P.DS ---
Admission Date: 03/20/20 Discharge Date: 03/22/20 Disposition: ROUTINE DISCHARGE Reason for Admission: Diarrhea and vomiting - Problems (1) Acute renal failure Current Visit: Yes Status: Acute (2) Prostate cancer Current Visit: Yes Status: Acute (3) Acute gastroenteritis Current Visit: Yes Status: Acute (4) Hypokalemia Current Visit: Yes Status: Acute (5) Hyponatremia Current Visit: Yes Status: Acute Brief History of Present Illness: 64-year-old gentleman with a history of prostate cancer undergoing external beam radiation therapy presented emergency department with a complaint 60 history of diarrhea and a 3 day history of vomiting. The patient is symptoms started suddenly. He denied any fever. He said he has been feeling drained and weak since the past 2 days. He called his radiation oncologist will told him he may be experiencing food poisoning. The patient was directed to the ED to be evaluated. Here in the ED patient noted to have acute renal failure with creatinine up to 2.3 from normal. He also had severe hypokalemia with 2.9 and hyponatremia. No leukocytes. He was mildly tachycardic in the ED. No hypotension. Patient hospitalized for further management of acute renal failure. Hospital Course: Patient place under observation and hydrated with IV fluid. His renal function significantly improved with IV hydration. Acute renal failure resolved. He had a fecal leukocytes in the stool sample. Other stool studies are pending. Patient is asymptomatic today. He is up and ambulating. He denies any abdominal pain or weakness or nausea or vomiting. He states the diarrhea is better with the the loperamide. Patient is clinically stable for discharge. Vital Signs/Physical Exam: Temp Pulse Resp BP Pulse Ox 97.0 F 64 18 156/70 H 99 03/21/20 08:00 03/21/20 08:00 03/21/20 08:00 03/21/20 08:00 03/21/20 08:00 General: Alert, In no apparent distress, Oriented x3 HEENT: Mucous membr. moist/pink Neck: Supple Respiratory: Clear to auscultation bilaterally, Normal air movement Cardiovascular: No edema, Regular rate/rhythm, Normal S1 S2 Capillary refill: <2 Seconds Gastrointestinal: Normal bowel sounds, Soft and benign, No tenderness Musculoskeletal: No swelling, No erythema Integumentary: No rashes Neurological: Other (non-focal.) Laboratory Data at Discharge: WBC 6.3 K/uL (4.3-10.9) D 03/21/20 07:36 Hgb 13.5 g/dL (13.6-17.9) L D 03/21/20 07:36 Hct 37.9 % (39.6-49.0) L D 03/21/20 07:36 Plt Count 164 K/uL (152-406) D 03/21/20 07:36 Sodium 135 mmol/L (136-145) L 03/21/20 05:26 Potassium 3.2 mmol/L (3.5-5.1) L 03/21/20 05:26 BUN 26 mg/dL (7-18) H 03/21/20 05:26 Creatinine 1.21 mg/dL (0.55-1.3) D 03/21/20 05:26 Glucose 95 mg/dL (74-106) 03/21/20 05:26 Phosphorus 3.1 mg/dL (2.5-4.9) 03/21/20 05:26 Magnesium 1.9 mg/dL (1.8-2.4) 03/21/20 05:26 Total Bilirubin 0.6 mg/dL (0.2-1.0) 03/20/20 14:01 AST 14 U/L (15-37) L 03/20/20 14:01 ALT 26 U/L (12-78) 03/20/20 14:01 Alkaline Phosphatase 147 U/L (45-117) H 03/20/20 14:01 Lipase 99 U/L (73-393) 03/20/20 14:01 Home Medications: Atorvastatin Calcium [Lipitor*] 10 mg PO BEDTIME 03/26/17 hydroCHLOROthiazide [Hydrochlorothiazide] 25 mg PO DAILY 03/26/17 Dayana Depot 30 mg IM SEECOM 03/20/20 Amlodipine [Norvasc*] 5 mg PO DAILY #30 tab 03/21/20 Ciprofloxacin HCl [Cipro 500 MG Tablet] 500 mg PO BID #10 tab 03/21/20 Loperamide [Imodium*] 2 mg PO Q4H PRN #15 cap 03/21/20 metroNIDAZOLE [Flagyl] 500 mg PO Q8H #15 tablet 03/21/20 Potassium Chloride [K-Dur] 40 meq PO DAILY #2 tab.er.prt 03/22/20 New Medications: Ciprofloxacin HCl [Cipro 500 MG Tablet] 500 mg PO BID #10 tab metroNIDAZOLE [Flagyl] 500 mg PO Q8H #15 tablet Loperamide [Imodium*] 2 mg PO Q4H PRN #15 cap PRN Reason: Diarrhea Potassium Chloride [K-Dur] 40 meq PO DAILY #2 tab.er.prt Amlodipine [Norvasc*] 5 mg PO DAILY #30 tab Diet: AHA Activity: Ad wyatt Followup: Kerline Quintanilla MD [ACTIVE - CAN ADMIT] - 1-2 Weeks
[2020-03-21 12:02] LABS: Urine Protein/Creatinine Ratio 0.1 ratio (<0.15)
--- NOTE | 2020-03-21 13:27 | CON ---
Date of Consultation: 03/21/2020 Additional Consulting Physician: Dr. Borja. Reason For Consultation: Elevated BUN and creatinine, fluid management. History Of Present Illness: This is a pleasant 64-year-old gentleman with significant past medical history of hypertension, hyperlipidemia, prostate CA, status post surgery, currently on radiation therapy. The patient according to him for the last 2 weeks having some diarrhea, went to his radiation therapy, found to have worsening in his diarrhea, called his PCP directing him to go to the emergency room. Upon arrival to the emergency room, the patient found to have elevation in BUN and creatinine, creatinine 2.2 with GFR down to 30. The patient denied taking any nonsteroidal, no IV contrast recently. Reviewing the record for the patient back in April last year creatinine 1 with GFR of 69. The patient was started on IV hydration. Creatinine dropped from 2.2 to 1.2. The patient still have diarrhea, but nausea and vomiting has been subsided. The patient denied any fevers, any chills. Past Medical History: Include: 1. Prostate CA. 2. Hyperlipidemia. 3. Hypertension. Allergies: NO KNOWN DRUG ALLERGIES. Home Medications: Include atorvastatin, lisinopril, hydrochlorothiazide. Past Surgical History: Includes prostate surgery, left ankle surgery. Family History: Positive for diabetes. Social History: Lives with family. Denies smoking. Denies drinking. Denies drug abuse. Review of Systems: Head and Neck: No red eye. No ear pain. GI: Has nausea, vomiting, has diarrhea. : No polyuria, no dysuria, no hematuria. Shoemaker Custom: Not applicable. Respiratory: No shortness of breath. Cardiovascular: No chest pain. Endocrine: No polydipsia. Skin: No rash. Neuro: No neuropathy. No low back pain. Musculoskeletal: Generalized fatigue. Physical Examination: Vital Signs: When I saw the patient blood pressure of 131/70, pulse of 64, afebrile. Chest: Clear to auscultation. Heart: S1, S2. Regular. Abdomen: Soft, nontender. No guarding or rebound. Extremities: No edema. Neurological: Alert, oriented x3. No focal. Laboratory Data: Sodium 135, potassium 3.2, bicarb 27, BUN 26, creatinine 1.2, GFR of 61, calcium 8.3, phosphorus 3.1, magnesium 1.9. Upon admission to the hospital, sodium 132, potassium 2.9. Assessment And Plan: Acute kidney injury, obstructive uropathy has been ruled out. It was secondary to poor perfusion, acute tubular necrosis secondary to low blood pressure secondary to gastrointestinal loss, superimposed with lisinopril and hydrochlorothiazide with dehydration, complicated also with hyponatremia and hypokalemia. 1. The patient looked to me normal volume. Currently, I am going to go ahead and discontinue IV fluid after finishing current bag. 2. Hyponatremia secondary to depletion, superimposed with hydrochlorothiazide. Keep holding hydrochlorothiazide. 3. Hypertension with the presence of acute kidney injury. Hold JESSICA inhibitor and hydrochlorothiazide. 4. Hypokalemia. We will supplement. 5. Hypomagnesemia. We will supplement. 6. Prostate carcinoma, follow up with Urology. The patient will be cleared from the renal standpoint for discharge planning. time 65 min discussing wth patient and arrange treatment with the staff JOSUÉ Voice ID: [id number] Report ID: [id number] ZI
[2020-03-21] MEDS: METRONIDAZOLE 500mg IVPB 500 MG/100 ML BAG IV SCH (16:39)
--- NOTE | 2020-03-21 16:43 | P.PN ---
Subjective Date of Service: 03/21/20 Chief Complaint: Diarrhea and vomiting Patient reports persistent diarrhea. He denies abdominal pain. He reports no more nausea or vomiting. His serum creatinine has trended down. He stated the generalized weakness has resolved. Physical Examination - Vital Signs Temperature: 97.5 F Blood Pressure: 124/65 Pulse: 61 Respirations: 18 Pulse Ox (%): 100 - Physical Exam General: Alert, In no apparent distress HEENT: Mucous membr. moist/pink Respiratory: Clear to auscultation bilaterally, Normal air movement Cardiovascular: No edema, Regular rate/rhythm, Normal S1 S2 Gastrointestinal: Normal bowel sounds, Soft and benign, Non-distended, No tenderness Musculoskeletal: No swelling, No erythema Integumentary: No rashes, No tenderness/swelling Neurological: Other (Nonfocal) - Studies Laboratory Data (last 24 hrs) 03/20/20 14:01: WBC 10.9, Hgb 16.2, Hct 46.7, Plt Count 88 L 03/20/20 14:01: Sodium 132 L, Potassium 2.9 L*, BUN 27 H, Creatinine 2.23 H, Glucose 126 H, Total Bilirubin 0.6, AST 14 L, ALT 26, Alkaline Phosphatase 147 H, Lipase 99 Assessment And Plan - Current Problems (Diagnosis) (1) Acute renal failure Current Visit: Yes Status: Acute (2) Prostate cancer Current Visit: Yes Status: Acute (3) Acute gastroenteritis Current Visit: Yes Status: Acute (4) Hypokalemia Current Visit: Yes Status: Acute (5) Hyponatremia Current Visit: Yes Status: Acute - Plan Acute renal failure resolved. He has persistent diarrhea. C. diff is negative. Few stool WBC identified. Start IV Flagyl and ciprofloxacin. IV fluid discontinued. Loperamide p.r.n. Monitor renal function. Monitor and replace electrolytes as needed. COVID 19 is negative Hold lisinopril and hydrochlorothiazide. BP is stable without these medications for now.
[2020-03-21] MEDS ORDERED: ATORVASTATIN 10 MG TAB PO SCH (21:00)
[2020-03-21] MEDS: CIPROFLOXACIN 400mg IV 400 MG/200 ML BAG IV SCH (21:17)
[2020-03-22] MEDS: METRONIDAZOLE 500mg IVPB 500 MG/100 ML BAG IV SCH ×2 (00:13→09:34)
[2020-03-22] MEDS: HEPARIN 5000 UNIT/ML 1 ML VIAL SQ SCH ×2 (00:13→09:47)
[2020-03-22] MEDS: LOPERAMIDE HCL 2 MG CAPSULE PO PRN ×2 (05:34→09:34)
[2020-03-22] MEDS: NS KCL 20MEQ 20 MEQ/1,000 ML BAG IV SCH ×2 (05:34→12:09)
[2020-03-22 06:08] LABS: Albumin 3.1 g/dL (3.4-5.0); Phosphorus 2.3 mg/dL (2.5-4.9); Potassium 3.3 mmol/L (3.5-5.1); Uric Acid 5.8 mg/dL (3.5-7.2)
[2020-03-22 07:53] VITALS: O2SAT 98
[2020-03-22] MEDS ORDERED: POTASSIUM PHOS 20 MM in NA CHLORIDE 0.9% 500 ML IV ONE (09:00)
[2020-03-22] MEDS ORDERED: KCL 20 MEQ/100 mL IVPB 20 MEQ/100 ML BAG IV SCH (09:00)
[2020-03-22] MEDS: CIPROFLOXACIN 400mg IV 400 MG/200 ML BAG IV SCH (09:34)
[2020-03-22 12:18] VITALS: BP 152/73; TEMP 96.8
--- NOTE | 2020-03-22 12:18 | P.PN ---
Subjective Date of Service: 03/22/20 Chief Complaint: Diarrhea and vomiting Subjective pt admitted with diarrhea Physical exam general: AAOX3, NAD , obese Neck; Supple, No elevated JVD hear: RRR, normal S1,2 no murmur or rub Chest: CTAB, no rlaes or wheezes Abdomen: Soft , Nt Extremities No edema or ulcer Assessment And Plan: АННА due to dehydration resolved hyponatremia due to dehydration resolved Hypokalmeia and hypomagnesemia due to diarrhea replaced Hx of prostate ca f/u with his urologist Diarrhea improved cleared for discharge from nephrology point of view Physical Examination - Vital Signs Temperature: 96.8 F Blood Pressure: 152/73 Pulse: 56 Respirations: 18 Pulse Ox (%): 99
== END 2020-03-22 13:02 | disposition home or self-care (01) ==
LOC: ER 12:46 → ERHOLD 18:42 → 2ND 23:14
PROVIDERS: ADMIT Internal Medicine; ATTEND Internal Medicine
DX: N17.0 Acute kidney failure with tubular necrosis (principal); C61 Malignant neoplasm of prostate; K52.9 Noninfective gastroenteritis and colitis, unspecified; E87.6 Hypokalemia; E87.1 Hypo-osmolality and hyponatremia; E83.42 Hypomagnesemia; E86.0 Dehydration; K80.20 Calculus of gallbladder without cholecystitis without obstruction; E78.5 Hyperlipidemia, unspecified; I10 Essential (primary) hypertension; Z20.828 Contact with and (suspected) exposure to other viral communicable diseases; Z79.899 Other long term (current) drug therapy
CPT/HCPCS: 96365; 87045; 85025 ×2; 80048 ×2; 36415 ×2; 83735 ×2; 82550; 89055; 87177; 84100; 84132 ×2; 80076; 84550; 87046; 87209; 80069; 87324; 82570; 83690; 87449; 87425; 84156; 74176; 99285; 96366; U0003; J1644 ×5; J3480 ×2; J3475; G0378 ×4; J7040; J7030 ×3; J0744 ×2; 81003; 81015

== ENCOUNTER 2022-10-14 07:44 | Day surgery (SDC) | payer OTHER ==
--- NOTE | 2022-10-09 08:50 | RAD REPORT ---
EXAM DESCRIPTION: RAD - Chest Pa And Lat (2 Views) - 10/09/2022 8:32 am CLINICAL HISTORY: Pre op pending colonoscopy COMPARISON: Chest Single View dated 07/11/2022; Chest Single View dated 04/17/2022; Chest Single View dated 02/27/2022; Chest Single View dated 12/11/2021No comparisons FINDINGS: Lines: None. Lungs: No evidence of edema or pneumonia. Pleural: No significant pleural effusions or pneumothorax. Cardiac: The heart size is within normal limits. Mediastinum: Within normal limits. Bones: No acute fractures. Other: None IMPRESSION: No acute cardiopulmonary disease.
[2022-10-09 09:55] LABS: Absolute Lymphocytes (CBC) 1.7 K/uL (0.7-4.9); Hematocrit 39.6 % (39.6-49.0); Lymphocytes % 21.7 % (15.3-44.8); MCV 94.1 fL (80-100); RBC Red Blood Cell Count 4.21 M/uL (4.33-5.43)
[2022-10-09 10:05] LABS: Potassium 3.8 mmol/L (3.5-5.1)
--- NOTE | 2022-10-09 13:15 | EKG ---
Test Date: 2022-10-09 Test Time: 08:11:56 Machine Operator Assistant: KENDRA MEASUREMENT RESULTS: Intervals: Rate: 53 DE: 174 QRSD: 90 QT: 440 QTc: 412 [place]: P: 47 DE: 174 QRS: 63 T: 68 INTERPRETIVE STATEMENTS: Sinus bradycardia ST abnormality, possible digitalis effect Abnormal ECG No previous ECG available for comparison Electronically Signed On 10-09-22 13:14:00 FUNERAL ASSISTANT by Samy Adam
[2022-10-14] MEDS ORDERED: Ringers Lactate 1,000 ML IV ONE (08:09)
[2022-10-14] MEDS ORDERED: propofoL 200 MG/20 ML VIAL IV ONE (09:04)
[2022-10-14] MEDS ORDERED: LIDOCAINE 1% MPF 5 ML VIAL ONE (09:04)
[2022-10-14 11:29] VITALS: BP 114/70; TEMP 98.8; O2SAT 99
== END 2022-10-14 10:19 | disposition home or self-care (01) ==
LOC: OR 07:44
PROVIDERS: ATTEND Surgery
PROC: 0DJD8ZZ Inspection of Lower Intestinal Tract, Via Natural or Artificial Opening Endoscopic (ICD-10-PCS; principal; 2022-10-14 09:00)
DX: Z12.11 Encounter for screening for malignant neoplasm of colon (principal); Z86.010 Personal history of colon polyps; Z85.46 Personal history of malignant neoplasm of prostate; N40.0 Benign prostatic hyperplasia without lower urinary tract symptoms
CPT/HCPCS: 93005; 85025; 80048; 36415; 71046; J2704; J2001; J7120; G0121